=== PATIENT | female | born 1980 | race Caucasian/White ===

== ENCOUNTER 2018-05-07 11:29 | Day surgery (SDC) | payer BC, SELFPAY ==
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
[2018-05-07 11:52] LABS: Internal QC Validated? YES +Cl - CLEAR BKGD; Pregnancy, Urine Negative Negative
[2018-05-07 11:53] VITALS: BP 128/75; PULSE 74; RESP 18; TEMP 37.2; O2SAT 100; BMI 42.9
[2018-05-07 12:12] LABS: Hematocrit 42.2 % (37-47); Hemoglobin 13.6 g/dl (12.0-15.0); Mean Corp Hgb Conc 32.2 g/gl (32-36); Mean Corpuscular Hgb 30.2 pg (27.0-32.0); Mean Corpuscular Volume 93.8 fL (81-99); Mean Platelet Vol. 10.3 fl (6.2-12.0); Platelet Count 250 K/mm3 (150-450); RBC Distribution Width CV 13.3 % (11.6-14.6); RBC Distribution Width SD 45.1 fl (35.1-43.9); Scan Indicated on CBC? Y/N NO; White Blood Count 12.6 K/mm3 (4.4-11.0)
[2018-05-07] MEDS: Ketorolac 30 MG/ML Syringe IV (12:12)
[2018-05-07] MEDS: Acetaminophen 500 MG Tablet 1000 MG PO (12:12)
[2018-05-07] MEDS: Vasopressin 20 UNITS/ML Vial (13:48)
--- NOTE | 2018-05-07 14:17 | DCINST_ITS ---
Discharge Diet: No Restrictions Discharge Activity: Return to Normal Activity, May Shower, May Take a Tub Bath - in 2 weeks. May shower in (days): 1 May resume sexual activity in: 2 weeks Call your doctor if your incision/area has: Sudden Increased Bleeding, Foul Smelling Discharge Call your doctor if you observe: Fever of 101 or Higher, Inability to urinate, Using more than one pad per hour - for more than 2 hrs in a row Allergies/Adverse Reactions: Allergies adhesive tape Allergy (Verified 05/07/18 11:50) Rash cephalexin monohydrate [From Keflex] Allergy (Verified 05/07/18 11:50) Hives levofloxacin [From Levaquin] Allergy (Verified 05/07/18 11:50) Hives Penicillins [PCN] Allergy (Verified 05/07/18 11:50) Anaphylaxis vancomycin Allergy (Verified 05/07/18 11:50) Unknown Medications to take at Discharge Clobazam [Onfi] 10 mg PO QHS 12/29/12 Levalbuterol HCl [Xopenex Aerosols] 0.63 mg INHALATION Q4H PRN PRN 12/29/12 Levalbuterol Tartrate [Xopenex Hfa Inhaler] 2 puff INHALATION Q4H PRN PRN 12/29/12 Levothyroxine [Synthroid] 200 mcg PO MOTUWETHFRSA 12/29/12 Zonisamide [Zonegran] 200 mg PO BID 12/29/12 Valium 10 mg IM BID PRN PRN 03/05/13 Citalopram [Celexa] 20 mg PO DAILY 05/01/18 Lamotrigine [Lamictal] 100 mg PO DAILY 05/01/18 Lamotrigine [Lamictal] 200 mg PO QHS 05/01/18 MethylPREDNISolone [Medrol] 16 mg PO DAILY PRN 05/01/18 Hydrocodone/Acetaminophen [[place] 5-325 Tablet] 1 - 2 each PO Q8 PRN #8 tablet 05/07/18 Ibuprofen [Motrin] 600 mg PO Q6H PRN #20 tablet 05/07/18 The following prescriptions were given: Hydrocodone/Acetaminophen [[place] 5-325 Tablet] 1 - 2 each PO Q8 PRN #8 tablet PRN Reason: Severe Pain (-12/10) Ibuprofen [Motrin] 600 mg PO Q6H PRN #20 tablet PRN Reason: Pain Primary Care Physician: [facility] Doctor,Out of [Primary Care Provider] - Test Results: Test results from this visit will be discussed in further detail at your follow- up appointment, if applicable. Please Follow Up With: Marissa Melo MD - [phone] When: 2-4 weeks or as needed
--- NOTE | 2018-05-07 14:41 | PCM.OPRPT ---
Report of Operation Date of Procedure: 05/07/18 Pre-Operative Diagnosis: AUB, thickened endometrium Post-Operative Diagnosis: same Surgery/Procedure Performed:: Hysteroscopy with dilation and curettage with symphion device Description of Surgical Findings:: Normal-appearing cervix and vagina. Endometrium with polypoid appearing lesion in the anterior fundus. Otherwise diffusely thickened endometrium window treatment installer: Anup Davalos MS3 Type of Anesthesia:: General Anesthesiologist: Francisca Mayer Special Medications: vasopression injection in the cervix Specimen's removed: endometrial curettings Drains: none Estimated Blood Loss (mL): 10 Fluids Replaced: 400 cc LR Description of Procedure: The patient was taken to the OR where she was prepped and draped in dorsal lithotomy position. The weighted speculum was placed in the vagina and the anterior lip of the cervix was grasped with a single-tooth tenaculum. 10 cc of dilute vasopressin solution were injected around the cervix. After 2-3 minutes, the cervix dilated easily with the cervical dilators.. The Symphion hysteroscope was placed into the uterine cavity and the above findings were noted. Bilateral tubal ostia [were] identified. The symphion resection device was readied. I then used that to resect the polypoid appearing lesion as well as do a visual dilation and curettage of the entire endometrial cavity. At the end of this resection, the endometrial cavity appeared normal in shape and size and there were no other focal abnormalities noted. The instruments were removed from the vagina. The specimen was handed off and sent to pathology. All sponge and needle counts were correct. Vaginal sweep was performed by me. The patient was awakened and taken to the recovery room in stable condition. Hysteroscopic deficit was 150 cc normal saline Grafts/Implants Used: none - Complications none - Admit VTE Documentation VTE Present on Admission: No VTE Mechan Device Prophylaxis: SCD's VTE Pharm Prophylaxis ordered?: No Reason prophylaxis not ordered:: Procedure Not Indicated
[2018-05-07 14:45] VITALS: BP 124/76; BP 128/75; PULSE 75; RESP 16; TEMP 36.5; O2SAT 99
[2018-05-07 15:00] VITALS: BP 120/81; BP 128/75; PULSE 75; RESP 16; O2SAT 99
[2018-05-07 15:17] VITALS: BP 125/84; BP 128/75; PULSE 85; RESP 16; TEMP 36.6; O2SAT 99
[2018-05-07] MEDS: HYDROcodone Bitartrate/Apap 5/325 Tablet PO (15:49)
[2018-05-07 16:08] VITALS: BP 122/85; BP 128/75; PULSE 78; RESP 16; O2SAT 98
--- NOTE | 2018-05-08 13:10 | EMB_PTH ---
PATIENT: NAVIN LEVY LOC: [facility] [place] U#:[id number] AGE/SX: 37/F ROOM: RE05/07/[address]: Dr. Marissa Melo MD : 1980 BED: DIS: 05/07/2018 SPEC #: [id number] RECD: 05/08/18 13:38 STATUS: DUTCH DANELLE #: [id number] DAYANA: 05/08/18 13:[address]: Marissa Melo DEPT: SURGICAL PATHOLOGY RECD BY: Ludy John ENTERED: 05/08/18 14:28 SP TYPE: ENDOM BX/C OT DR: [facility] Doctor Tissues: Endometrium, NOS Procedures: Surgery Specimen Level IV HEADER OPERATION: Hysteroscopy, D & C, polyp resection, Symphion PRE-OP DIAGNOSIS: Menorrhagia, thickened endometrium, suspected endometrial polyp TISSUE SUBMITTED: Endometrial curettings MICROSCOPIC DIAGNOSIS Endometrium, curettings: Secretory endometrium. AM:guillaume 05/11/18 MICROSCOPIC DESCRIPTION Slides are reviewed. GROSS DESCRIPTION Received in fixative is one container labeled with the patient's name and designated endometrial curettings. The specimen consists of multiple irregular fragments of light lundberg soft tissue that in aggregate measure 7 x 5 x 0.2 cm. The specimen is totally submitted in two cassettes. / AM:guillaume 05/08/09 TC:5 CPT: 62492
== END 2018-05-07 16:10 | disposition home or self-care (01) ==
LOC: SDC 11:31 → AC 11:32
PROVIDERS: Referring Provider Obstetrics & Gynecology; Visit Provider Obstetrics & Gynecology
PROC: 0UB98ZZ Excision of Uterus, Via Natural or Artificial Opening Endoscopic (ICD-10-PCS; CPT 58558; principal; 2018-05-07 12:55)
DX: N92.0 Excessive and frequent menstruation with regular cycle (principal); R93.89 Abnormal findings on diagnostic imaging of other specified body structures; J45.909 Unspecified asthma, uncomplicated; M79.7 Fibromyalgia; C73 Malignant neoplasm of thyroid gland; Z79.899 Other long term (current) drug therapy; Q04.9 Congenital malformation of brain, unspecified; Q76.49 Other congenital malformations of spine, not associated with scoliosis; F32.9 Major depressive disorder, single episode, unspecified; F41.9 Anxiety disorder, unspecified; K58.9 Irritable bowel syndrome, unspecified; M06.9 Rheumatoid arthritis, unspecified
CPT/HCPCS: 00952; 58558; 81025; 85027; 88305; J7120; J2405

== ENCOUNTER 2018-06-09 19:05 | Emergency (ER) | payer BC, SELFPAY ==
[2018-06-09 19:05] VITALS: BP 165/82; PULSE 85; RESP 16; TEMP 36.6; O2SAT 98; BMI 44.3
--- NOTE | 2018-06-09 19:28 | RAD_ITS ---
STUDY: X-RAY CHEST REASON FOR EXAM: Female, 37 years old. Coughing up blood TECHNIQUE: PA and lateral chest COMPARISON: None. FINDINGS: The lungs are clear and expanded. There is no demonstrated pleural abnormality. Normal size heart. Normal mediastinum and diogo. Normal visualized pulmonary arteries. Normal visualized aortic arch and descending thoracic aorta. There is mild thoracic kyphosis with osteophyte formation. Normal visualized ribs, clavicles, and shoulders. There is no demonstrated abnormality of the visualized soft tissue structures of the upper abdomen. RAD/Chest PA and Lateral IMPRESSION: Normal x-ray examination of the chest. Electronically Signed: Uri Savage, at 21:18 EDT Tel , Service support ,
--- NOTE | 2018-06-09 19:28 | ED.VISSUMM ---
- ER Visit Summary Date of Service: 06/09/18 Chief Complaint: Cough and today coughed up blood History of Present Illness: The patient is a 37 F history of seizure disorder, asthma, hypothyroidism and anxiety. He states she is chronic cough nonproductive for the last 3 weeks. Today he coughed several times and coughed up blood. She denies any chest pain, fever or shortness of breath. She is never had a DVT or PE. No clotting disorder. No family history. She has had no recent hospitalization. She did have a D&C done 6 weeks ago. She denies any calf pain. She was seen today in urgent care who sent her to the ER for further evaluation. Physical Examination: Middle-aged woman no acute distress. Vital signs are stable afebrile. Pulse ox 98% on room air no signs of hypoxia. HEENT exam unremarkable. Neck nontender no JVD. Lungs clear to auscultation bilaterally. Heart regular rate and rhythm no murmur. Rate about 80. Abdomen soft and nontender. Moving all 4 extremities. Calves are nontender without edema or cords. Neurologically she is awake and alert with no focal motor deficits. Test Results: D-dimer equals 0.51 barely above normal. Chest x-ray 2 views AP and lateral shows no acute abnormality. Read both by myself and the radiologist. Emergency Department Course and Treatment: Multiple repeat exams the patient is doing well at 2210. Due to the elevated d-dimer we are attempting to get a CTA. Unfortunately the patient's left upper extremity antecubital large-bore IV blew. Nurses are attempting to put a second IV and to get the CTA. I examined the patient's neck there is no visualized EJ Vein that would be easily accessible. Treatment Plan: [] Disposition: Discharge Impression: Cough with hemoptysis This note was generated with [employer] dictation software. It may contain incorrect words, spelling, and punctuation that were not noted in review of the chart prior to signing ED Disposition - Plan for ED Patient: Referrals: [facility] Doctor,Out of [Primary Care Provider] -
--- NOTE | 2018-06-09 19:31 | ED.DCSUM_ITS ---
- ER Visit Summary Date of Service: 06/09/18 Chief Complaint: Cough and today coughed up blood History of Present Illness: The patient is a 37 F history of seizure disorder, asthma, hypothyroidism and anxiety. He states she is chronic cough nonproductive for the last 3 weeks. Today he coughed several times and coughed up blood. She denies any chest pain, fever or shortness of breath. She is never had a DVT or PE. No clotting disorder. No family history. She has had no recent hospitalization. She did have a D&C done 6 weeks ago. She denies any calf pain. She was seen today in urgent care who sent her to the ER for further evaluation. Physical Examination: Middle-aged woman no acute distress. Vital signs are stable afebrile. Pulse ox 98% on room air no signs of hypoxia. HEENT exam unremarkable. Neck nontender no JVD. Lungs clear to auscultation bilaterally. Heart regular rate and rhythm no murmur. Rate about 80. Abdomen soft and nontender. Moving all 4 extremities. Calves are nontender without edema or cords. Neurologically she is awake and alert with no focal motor deficits. Test Results: D-dimer equals 0.51 barely above normal. Chest x-ray 2 views AP and lateral shows no acute abnormality. Read both by myself and the radiologist. Emergency Department Course and Treatment: Multiple repeat exams the patient is doing well at 2210. Due to the elevated d-dimer we are attempting to get a CTA. Unfortunately the patient's left upper extremity antecubital large-bore IV blew. Nurses are attempting to put a second IV and to get the CTA. I examined the patient's neck there is no visualized EJ Vein that would be easily accessible. Treatment Plan: [] Disposition: Discharge Impression: Cough with hemoptysis This note was generated with [employer] dictation software. It may contain incorrect words, spelling, and punctuation that were not noted in review of the chart prior to signing ED Disposition - Plan for ED Patient: Referrals: [facility] Doctor,Out of [Primary Care Provider] -
[2018-06-09 20:19] LABS: D-Dimer Quantitative (DVT/PE) 0.51 FEU/ug/m (0.27-0.49)
--- NOTE | 2018-06-09 20:39 | CT_ITS ---
STUDY: CTA CHEST REASON FOR EXAM: Female, 37 years old. Hemoptysis tonight with elevated d-dimer level and cough for 2 weeks. RADIATION DOSAGE (If Supplied By Facility): CTDIvol = ( 1.67 ) mGy, DLP = ( 527.59 ) mGycm TECHNIQUE: The examination was performed with the intravenous administration of 100 ml IV Isovue 370. Post-processing of the angiographic images was performed, with multiplanar reformation and 3D reconstruction. Individualized dose optimization techniques were used for this CT. COMPARISON: CT of the chest dated January 07, 2012. FINDINGS: Normal enhancement of the main pulmonary artery and right and left pulmonary arteries. Normal enhancement of the bilateral peripheral pulmonary arteries. There is no demonstrated pulmonary embolism. Normal thoracic aorta and visualized great vessels. There is no demonstrated aortic dissection. Normal heart and pericardium. Normal mediastinum. Normal hilar regions. Normal visualized trachea and bronchi. The lungs are well expanded. Normal pulmonary parenchyma. Normal pleura. Normal chest wall structures. Normal osseous structures. Normal visualized upper abdomen. CT/CTA Chest W/WO Contrast IMPRESSION: No CTA demonstrated pulmonary embolism or arterial dissection. Electronically Signed: Elizabeth Trevino MD at 0:34 EDT , Service support ,
[2018-06-09 20:51] LABS: Hematocrit 43.3 % (37-47); Hemoglobin 14.5 g/dl (12.0-15.0); Mean Corp Hgb Conc 33.5 g/gl (32-36); Mean Corpuscular Hgb 30.5 pg (27.0-32.0); Mean Corpuscular Volume 91.2 fL (81-99); Mean Platelet Vol. 10.4 fl (6.2-12.0); Platelet Count 279 K/mm3 (150-450); RBC Distribution Width CV 13.5 % (11.6-14.6); RBC Distribution Width SD 44.3 fl (35.1-43.9); Red Blood Count 4.75 M/mm3 (4.2-5.4); Scan Indicated on CBC? Y/N NO; White Blood Count 13.3 K/mm3 (4.4-11.0)
[2018-06-09 21:05] VITALS: RESP 16
[2018-06-09 21:11] LABS: BUN 8 mg/dL (7-18); Creatinine, Serum 0.93 mg/dL (0.55-1.02); Estimated Creatinine Clearance 84.88 ml/min; Glucose 86 mg/dL (74-106)
[2018-06-09 21:12] LABS: Anion Gap 5 (5-15); BUN/Creat Ratio 8.6 RATIO (10-20); Calcium,Total 8.8 mg/dL (8.5-10.1); Chloride 108 mmol/L (98-107); EST Glomerular Filtration Rate 71 mL/min (>60); Est Glom Filt Rate - Afr Amer 86 mL/min (>60); Sodium Level 137 mmol/L (136-145)
[2018-06-09] MEDS: 0.9% Normal Saline 1,000 ML 999 ML IV (22:27)
[2018-06-10 00:41] VITALS: BP 131/86; PULSE 77; RESP 16; O2SAT 97
--- NOTE | 2018-06-10 00:49 | ED.DEP ---
ED Disposition - Plan for ED Patient: Instructions: ED Hemoptysis Referrals: [facility] Doctor,Out of [Primary Care Provider] -
--- NOTE | 2018-06-10 01:05 | ED.RN ---
THIS NURSE REVIEWED D/C INSTRUCTIONS WITH PT. PT VERBALIZED UNDERSTANDING OF INSTRUCTIONS. IV D/C. IV CATHETER INTACT. PT TOLERATED WELL. PT DENIES FURTHER NEEDS OR QUESTIONS AT THIS TIME
== END 2018-06-10 01:06 | disposition home or self-care (01) ==
LOC: ED 19:32
PROVIDERS: Emergency Provider Emergency Medicine
DX: R04.2 Hemoptysis (principal); G40.909 Epilepsy, unspecified, not intractable, without status epilepticus; J45.909 Unspecified asthma, uncomplicated; E03.9 Hypothyroidism, unspecified; F41.9 Anxiety disorder, unspecified; Z79.51 Long term (current) use of inhaled steroids; Z79.899 Other long term (current) drug therapy
CPT/HCPCS: 71046; 71275; 80048; 85027; 85379; 96360; 99285; J7030; Q9967; A4216

== ENCOUNTER → 2019-03-23 10:05 | Outpatient (CLI) | payer BC, SELFPAY ==
[2019-03-23 10:00] VITALS: BMI 44.3
--- NOTE | 2019-03-23 10:06 | RAD_ITS ---
HISTORY: DISLOCATION LAST EVENING ADDITIONAL HISTORY: None provided. TECHNIQUE: Right shoulder 3 views Number of images including paperwork: 4 COMPARISON: None FINDINGS: BONES: No acute fracture. JOINTS: No subluxation. Degenerative changes in the visualized spine. SOFT TISSUES: No distinct foreign body. RAD/Shoulder min 2 Views IMPRESSION: No acute osseous abnormality. at 0615 Reported and signed by: Destini Low MD Electronically Signed: Destini Low MD at 6:15 EST Tel , Service support ,
== END ==
PROVIDERS: Referring Provider Physician Assistant Surgical; Visit Provider Physician Assistant Surgical
DX: S46.911A Strain of unspecified muscle, fascia and tendon at shoulder and upper arm level, right arm, initial encounter (principal); X58.XXXA Exposure to other specified factors, initial encounter; Y93.9 Activity, unspecified; Y92.9 Unspecified place or not applicable; Y99.9 Unspecified external cause status
CPT/HCPCS: 73030

== ENCOUNTER → 2019-03-30 12:49 | Outpatient (CLI) | payer BC, SELFPAY ==
[2019-03-30 12:33] VITALS: BMI 44.3
--- NOTE | 2019-03-30 12:49 | RAD_ITS ---
STUDY: X-RAY - RIGHT SHOULDER REASON FOR EXAM: History of dislocation. TECHNIQUE: A single view of the shoulder. COMPARISON: Radiographs 03/23/2019. FINDINGS: Normal glenohumeral articulation. Normal acromion. Normal humeral head and visualized proximal humerus. The soft tissue structures are unremarkable. RAD/Shoulder One View IMPRESSION: Unremarkable axillary view of the right shoulder. Electronically Signed: Dylan Marion MD at 15:35 EST Tel , Service support ,
--- NOTE | 2019-03-30 12:49 | RAD_ITS ---
STUDY: X-RAY - CERVICAL SPINE REASON FOR EXAM: Female, 38 years old. History of congenital cervical spine fusion. Pain. TECHNIQUE: 5 view(s) of the cervical spine were obtained on 6 images. COMPARISON: None FINDINGS: Normal anterior atlantoaxial articulation. Normal odontoid process. Normal cervical lordosis. Congenital fusion of C3-4. Normal disc space heights. Normal visualized intervertebral neuroforamina. Mild diffuse uncovertebral and facet sclerosis. Clips in the region of the thyroid. RAD/Cerv Spine 4 or 5 Views IMPRESSION: Congenital fusion of C3-4. Mild diffuse cervical spondylosis. Electronically Signed: Sebastian Camilo MD at 18:35 EST , Service support ,
== END ==
PROVIDERS: Referring Provider Orthopaedic Surgery; Visit Provider Orthopaedic Surgery
DX: M25.511 Pain in right shoulder (principal); M54.2 Cervicalgia
CPT/HCPCS: 72050; 73020

== ENCOUNTER 2019-04-05 11:53 | Outpatient (RCR) | payer BC, SELFPAY ==
[2019-03-30 12:33] VITALS: BMI 44.3
--- NOTE | 2019-04-05 12:51 | HP.PTEVAL ---
Patient's Visit Information NAVIN LEVY is a 38 year old F referred to Physical Therapy by Dr. Margie Buck DO with a diagnosis of RIGHT SHOULDER IMPINGEMENT/RTC TENDONESIS. Date of Evaluation: 04/05/19 Physical Therapist: Royal Gee, PT, Cert MDT, OCS - Visit Plan Frequency: 1 VISIT Plan: H/O SEIZURES. PT EVAL ONLY FOR HEP - Subjective Findings: This 38 y/o female presents to physical therapy with right shoulder impingement /RTC tendonesis. Patient has h/o multiple MDI ( multiple directional instablity) . Patient has h/o seizures causing disloaction,typically posterior dislocation. Patient recently reaching foward caused shoulder pain.Patient pain could have been due to lifting 50# boxes. Patient seen DR Fitzpatrick did x-rays -.,did cortizone injection which helped pain. Patient had difficulty with [place] activies ,reaching affects ADLS' . Patient pain affects ADL's and function with job demands. Patient denies parathesia/tinging . Patient pain affects sleeping. Patient shoulder symptoms affects QOL ,function and job demnads. SOCAIL: . VOCATION: Warehouse Delivery Driver - Objective POSTURE: rounded shoulders head foward. PALAPTION:unremarkable. NEURO: INTACT. AROM: shoulder flexion/abd 180 ,ER > 90 degrres,IR T8. MMT: RTC 4/5 except infraspinatous 4-/5 ,deltoid 4-/5. ,scapular 3/5. SCAPULAR -HUMERAL:1:1 RATIO - Special Tests R Shoulder Drop Sign - IS Test: Negative R Shoulder Neer - Impingement: Negative R Shoulder Clemons Ernesto - Impingement: Negative R Shoulder Speeds Test - Labrum/Biceps: Negative R Shoulder Sulcus Sign - Inferior Laxity: Positive R Shoulder AC Resisted - AC: Negative - Goals Goal 1:: Provided HEP for RTC strengthening/posture Goal Time Frame: 1 visit - Rehabilitation Potential Physical Therapy Diagnosis: This pateint has h/o multiple directional instablity with pain in right shoulder but no pain today ,just weakness and wanted HEP. Rehabilitation Potential: Good - Anticipated Interventions Patient/Client Instruction: Educate patient on: Condition, Plan of Care For the Purpose of:: Other Other: HEP Thank you for the opportunity to evaluate your patient. For Medicare and Medicare HMO plans, please review the plan of care and approve it. It will need to be FAXED BACK to us at [phone] for Medicare purposes. For Medicare only, by signing this I certify the plan of care. Please let me know if there are questions or concerns regarding this plan of care. Physician Signature: Date:
== END 2019-04-05 19:00 | disposition home or self-care (01) ==
LOC: PT 11:53
PROVIDERS: Referring Provider Orthopaedic Surgery; Visit Provider Orthopaedic Surgery
DX: M25.811 Other specified joint disorders, right shoulder (principal); M75.21 Bicipital tendinitis, right shoulder; M25.312 Other instability, left shoulder; M25.311 Other instability, right shoulder; Z86.69 Personal history of other diseases of the nervous system and sense organs; M24.811 Other specific joint derangements of right shoulder, not elsewhere classified
CPT/HCPCS: 97110; 97161

== ENCOUNTER → 2020-01-11 16:08 | Outpatient (CLI) | payer BC, SELFPAY ==
[2019-10-06 17:19] VITALS: BMI 44.3
--- NOTE | 2020-01-11 16:20 | RAD_ITS ---
STUDY: X-RAY CHEST REASON FOR EXAM: Female, 39 years old. cough, dyspnea and fever x 3 days TECHNIQUE: PA and lateral views of the chest. COMPARISON: 06/09/2018 FINDINGS: Faint alveolar opacity in the lower left lung which silhouettes left heart border suggestive of early or resolving lingular pneumonia. There is no demonstrated pleural abnormality. Normal size heart. Normal mediastinum and diogo. Normal visualized pulmonary arteries. Normal visualized aortic arch and descending thoracic aorta. Normal visualized thoracic spine. Normal visualized ribs, clavicles, and shoulders. There is no demonstrated abnormality of the visualized soft tissue structures of the upper abdomen. RAD/Chest PA and Lateral IMPRESSION: Early or resolving lingular pneumonia. Electronically Signed: Bennie Green MD at 16:46 EST Tel , Service support ,
== END ==
PROVIDERS: Referring Provider Internal Medicine Pulmonary Disease; Visit Provider Internal Medicine Pulmonary Disease
DX: J18.9 Pneumonia, unspecified organism (principal)
CPT/HCPCS: 71046

== ENCOUNTER → 2020-01-12 09:46 | Outpatient (CLI) | payer BC, SELFPAY ==
[2019-10-06 17:19] VITALS: BMI 44.3
== END ==
PROVIDERS: Visit Provider Internal Medicine Pulmonary Disease
DX: R50.9 Fever, unspecified (principal); R05 Cough; R06.02 Shortness of breath
CPT/HCPCS: 87635; C9803; U0003

== ENCOUNTER 2020-01-15 11:50 | Emergency (ER) | payer BC, SELFPAY ==
[2019-10-06 17:19] VITALS: BMI 44.3
[2020-01-15 11:51] VITALS: BP 150/106; PULSE 120; RESP 20; TEMP 36.9; O2SAT 95; BMI 44.3
--- NOTE | 2020-01-15 12:06 | ED.VIS.GEN ---
History of Present Illness Informant: Patient Onset: Days Narrative: 39-year-old female with past medical history of asthma presents with fever, productive cough, and myalgias x6 days. She had an outpatient chest x-ray and Covid test on 01/10 which showed early pneumonia and COVID test was negative. Her PCP prescribed her doxycycline and steroids which has reduced her wheezing and improved her breathing. She denies shortness of breath. Her main complaint is the myalgias and nausea. She states she has some chronic abdominal cramping and diarrhea which is unchanged. <Lorrie Garcia - Last Filed: 01/15/20 13:25> <Edmond Anderson - Last Filed: 01/15/20 14:41> Chief Complaint: Shortness of Breath Past Medical History Past Medical History: - - asthma Surgical History: cholecystectomy, - - thyroid resection for CA.....got I131 x 2 doses for mets on voal cords. Also had a D&C and a C-sect., Recent laparoscopic OBGYN surgery type unknown Smoking Status: Never smoker <Lorrie Garcia - Last Filed: 01/15/20 13:25> <Edmond Anderson - Last Filed: 01/15/20 14:41> - Allergies and Home Meds Allergies/Adverse Reactions: Allergies adhesive tape Allergy (Verified 01/15/20 11:51) Rash cephalexin monohydrate [From Keflex] Allergy (Verified 01/15/20 11:51) Hives levofloxacin [From Levaquin] Allergy (Verified 01/15/20 11:51) Hives Penicillins [PCN] Allergy (Verified 01/15/20 11:51) Anaphylaxis vancomycin Allergy (Verified 01/15/20 11:51) Unknown Primary Care Physician: NOT,DEFINED [NON-STAFF] - Review of Systems General: Reports: Chills, Fever, Malaise. Denies: Sweats, Weight loss Eyes: Denies: Visual changes - bilaterally, Diplopia ENT: Denies: Rhinorrhea, Sore throat Cardiovascular: Denies: Chest pain, Palpitations Respiratory: Reports: Cough, Sputum. Denies: Dyspnea, Dyspnea on exertion, Orthopnea Gastrointestinal: Reports: Abdominal pain, Nausea, Diarrhea. Denies: Vomiting Genitourinary: Denies: Dysuria, Hematuria, Frequency Musculoskeletal: Reports: Myalgias Skin: Denies: Rash, Wounds Neurological: Denies: Headache, Weakness, Numbness <Lorrie Garcia - Last Filed: 01/15/20 13:25> Physical Exam Vital Signs/Narrative: Vital Signs Temp Pulse Resp BP Pulse Ox 01/15/20 11:51 98.4 F 120 H 20 H 150/106 H 95 Inital Vital Signs reviewed: Yes General: Well nourished, Well developed, No Acute Distress Head: Normocephalic, Atraumatic Eyes: Perrl, EOMI ENT: Moist mucous membranes, No rhinorrhea Neck: Supple, Nontender Cardiovascular: Regular rate, Regular rhythm, No murmurs Respiratory: No distress, Chest nontender, - - mild expiratory wheezing in lung bases Abdomen: Soft, Nontender, Nondistended, Normal bowel sounds Back: Nontender, Normal Inspection Extremities: Nontender, No edema Skin: Normal color, No rash Neurological: Alert, Oriented x3, Cranial nerves II-XII grossly intact, Normal Strength, Normal Sensation Psychological: Normal affect, Normal Mood <Lorrie Garcia - Last Filed: 01/15/20 13:25> Vital Signs/Narrative: Vital Signs Temp Pulse Resp BP Pulse Ox 01/15/20 13:10 100 20 H 146/93 H 01/15/20 11:51 98.4 F 120 H 20 H 150/106 H 95 <Edmond Anderson - Last Filed: 01/15/20 14:41> Diagnostic/Tx/Re-eval Clinical Impression(s) from Imaging Studies Chest X-Ray 01/15/20 12:11 IMPRESSION: Left upper lobe pneumonia. Electronically Signed: Bennie Green MD at 12:30 EST Tel , Service support , - Medical Decision Making Patient presented with fever, productive cough, myalgias, and nausea. She appears well and nontoxic. Vital signs show tachycardia of 120, otherwise normal. 95% on room air. She is in no respiratory distress. Lungs had mild expiratory wheezing. Chest x-ray was interpreted by attending physician and myself and shows left upper lobe infiltrate. Radiology agrees. Another outpatient COVID test is pending. She was treated with toradol and zofran and vitals improved. She was advised to continue doxycycline and I gave a script for Augmentin. She needs to continue hydration and tylenol. She has a pulse oximeter and will return for hypoxia. She was agreeable and discharged home in stable condition. <Lorrie Garcia - Last Filed: 01/15/20 13:25> - Medical Decision Making Patient was seen by me, she appears well she was slightly tachycardic and has pneumonia on the x-ray we will treat her with antibiotics although I'm also worried about Covid. This is pending. She was told to quarantine. She is told to get a pulse oximeter. If she worsens she needs to return and she understands this if she desaturates below 88% she is to return and she understands this. <Edmond Anderson - Last Filed: 01/15/20 14:41> ED Disposition <Lorrie Garcia - Last Filed: 01/15/20 13:25> <Edmond Anderson - Last Filed: 01/15/20 14:41> - Plan for ED Patient: Disposition: Home or Assisted Living Diagnosis: Pneumonia Instructions: ED Upper Resp Infec Abx Tx Prescriptions: Amoxicillin/Potassium Clav [Augmentin 875-125 Tablet] 1 ea PO BID #14 tab Prescription Printed Ondansetron [Zofran Odt] 4 mg PO Q8H PRN PRN #10 tab PRN Reason: Nausea Prescription Printed Referrals: NOT,DEFINED [NON-STAFF] -
[2020-01-15] MEDS: Ketorolac 15 MG/ML Vial IM (12:11)
[2020-01-15] MEDS: Ondansetron ODT 4 MG Tablet PO (12:11)
--- NOTE | 2020-01-15 12:11 | RAD_ITS ---
STUDY: X-RAY CHEST REASON FOR EXAM: Female, 39 years old. Fever, thick cough TECHNIQUE: Single AP portable view of the chest. COMPARISON: 01/11/2020 FINDINGS: Alveolar opacity in the mid left lung consistent with left upper lobe pneumonia. There is no demonstrated pleural abnormality. Normal size heart. Normal mediastinum and diogo. Normal visualized pulmonary arteries. Normal visualized aortic arch and descending thoracic aorta. Normal visualized thoracic spine. Normal visualized ribs, clavicles, and shoulders. There is no demonstrated abnormality of the visualized soft tissue structures of the upper abdomen. RAD/Chest 1 View (Portable) IMPRESSION: Left upper lobe pneumonia. Electronically Signed: Bennie Green MD at 12:30 EST Tel , Service support ,
[2020-01-15] MEDS: Amox/Clavulanate 875 MG Tablet PO (13:06)
[2020-01-15 13:10] VITALS: BP 146/93; PULSE 100; RESP 20
== END 2020-01-15 13:11 | disposition home or self-care (01) ==
LOC: ED 12:54
PROVIDERS: Emergency Provider Physician Assistant
DX: U07.1 COVID-19 (principal); J12.89 Other viral pneumonia; J45.909 Unspecified asthma, uncomplicated; R11.0 Nausea; R19.7 Diarrhea, unspecified; Z79.899 Other long term (current) drug therapy
CPT/HCPCS: 71045; 87635; 96372; 99283; U0003

== ENCOUNTER → 2020-03-24 09:08 | Outpatient (CLI) | payer BC, SELFPAY ==
--- NOTE | 2020-03-24 09:15 | RAD_ITS ---
CLINICAL HISTORY: Female, 39 years old. Right shoulder dislocations. PROCEDURE: ARTHROGRAM - RIGHT SHOULDER CONSENT: The procedure as well as the benefits and possible complications including bleeding and infection were explained to the patient. Informed consent was obtained. FLUOROSCOPY TIME (if supplied): (46 seconds) minutes/seconds Injection Information: 10 cc of dilute Dotarem Number of images obtained: 4 TECHNIQUE: (All elements of maximal sterile barrier technique followed, including US elements as applicable) The patient was in the supine position. The overlying skin was prepped and draped in usual sterile fashion. Following local anesthetic application and under direct fluoroscopic guidance, a 22-gauge spinal needle was placed into the shoulder joint. 2 cc of ISOVUE-300 was injected for confirmation. Following this, 10 cc of dilute MRI contrast was injected. The patient tolerated the procedure well. RAD/Arthrogram Shoulder w/ MRI IMPRESSION: Successful right shoulder arthrogram with injection of 10 cc of dilute MRI contrast for MRI examination. The patient tolerated procedure well. Electronically Signed: Ke Butcher MD at 10:36 EST , Service support ,
--- NOTE | 2020-03-24 10:45 | MRI_ITS ---
STUDY: MR RIGHT SHOULDER ARTHROGRAPHY REASON FOR EXAM: Right shoulder pain and subluxations for several years. TECHNIQUE: Standardized fat and water weighted pulse sequences were obtained in all 3 orthogonal planes after attempted intra-articular instillation of 0.8 mL of dilute gadolinium by Dr. Butcher. COMPARISON: Right shoulder arthrogram radiographs preceding the MRI study. FINDINGS: Although there is image degradation secondary to patient motion and the contrast is extra-articular within the subacromial-subdeltoid bursa, there is still significant diagnostically useful information available from this examination. There is mild supraspinatus/infraspinatus tendinosis (T2 coronal images 10-12) without discrete tendon tear. Normal subscapularis tendon. Normal teres minor tendon. Normal supraspinatus muscle. Normal infraspinatus muscle. Normal subscapularis muscle. Normal teres minor muscle. Normal glenohumeral articulation. There is a small cyst in the posterior aspect of the greater tuberosity. There is no Hill-Sachs lesion. There is a subtle band of signal in the superior labrum extending into the biceps labral anchor (T2 coronal images 9-12), a possible SLAP lesion. Normal intracapsular long biceps tendon. There is no demonstrated Bankart lesion. Normal capsulo- ligamentous complex. Normal acromioclavicular articulation. There is a Type I morphology (flat undersurface), with a neutral orientation. There is iatrogenic contrast in the subacromial-subdeltoid bursa. Normal visualized coracohumeral and coracoacromial ligaments. There is iatrogenic edema in the proximal anterior deltoid muscle. Normal trapezius muscle. MRI/Upper Ext Jt Only W/Contrast IMPRESSION: Mild supraspinatus tendinosis without demonstrated rotator cuff tear. Possible subtle SLAP lesion. Electronically Signed: Dylan Marion MD at 12:47 EST Tel , Service support ,
== END ==
LOC: RAD 09:12
PROVIDERS: Referring Provider Orthopaedic Surgery; Visit Provider Orthopaedic Surgery
DX: M24.411 Recurrent dislocation, right shoulder (principal); M75.41 Impingement syndrome of right shoulder; S43.431A Superior glenoid labrum lesion of right shoulder, initial encounter; X58.XXXA Exposure to other specified factors, initial encounter; Y93.9 Activity, unspecified; Y92.9 Unspecified place or not applicable; Y99.9 Unspecified external cause status
CPT/HCPCS: 23350; 73222; 77002; Q9967; A9575

== ENCOUNTER → 2020-04-04 07:13 | Outpatient (CLI) | payer BC, SELFPAY ==
--- NOTE | 2020-04-04 07:14 | CT_ITS ---
STUDY: CT RIGHT SHOULDER REASON FOR EXAM: Right shoulder injury, right shoulder pain from dislocation. TECHNIQUE: The patient was scanned in a multi detector CT scanner. High resolution transaxial imaging was performed without the administration of intravenous contrast material. Sagittal and coronal images were reconstructed. Individualized dose optimization techniques were used for this CT. COMPARISON: MRI images 03/24/2020. FINDINGS: Normal glenohumeral articulation. Normal glenoid rim, neck and visualized scapula. Normal humeral head, neck and tuberosities. Normal coracoid process. Normal visualized lateral clavicle. Normal acromioclavicular articulation. There is a Type I morphology (flat undersurface), with a neutral orientation. Normal visualized muscles and soft tissue structures. CT/Extremity Upper without Contra IMPRESSION: Unremarkable CT of the right shoulder without demonstrated Hill-Sachs lesion or osseous Bankart lesion. Electronically Signed: Dylan Marion MD at 8:44 EST Tel , Service support ,
== END ==
LOC: CT 07:14
PROVIDERS: Referring Provider Orthopaedic Surgery; Visit Provider Orthopaedic Surgery
DX: M24.411 Recurrent dislocation, right shoulder (principal); M75.41 Impingement syndrome of right shoulder; S43.431A Superior glenoid labrum lesion of right shoulder, initial encounter; X58.XXXA Exposure to other specified factors, initial encounter; Y93.9 Activity, unspecified; Y92.9 Unspecified place or not applicable; Y99.9 Unspecified external cause status
CPT/HCPCS: 73200

== ENCOUNTER 2021-01-29 16:58 | Emergency (ER) | payer BC, SELFPAY ==
[2021-01-29 16:59] VITALS: BP 182/111; PULSE 95; RESP 16; TEMP 35.9; O2SAT 97; BMI 42.2
--- NOTE | 2021-01-29 18:44 | EDS_ITS ---
HPI HPI - GI History of Present Illness Chief Complaint: Abd Pain Informant: patient Abdominal Pain/Flank Pain Onset: Month(s) Context: Gradual Onset Timing: Intermittent Location: Epigastric Current Severity: Mild Maximum Severity: Mild Worsened by: Nothing Relieved by: Nothing Nausea/Vomiting/Emesis GI Symptom: Positive for Nausea; Negative for Vomiting Onset: Today Severity: Mild Diarrhea/Melena/Hematochezia GI Symptom: Negative for Diarrhea, Melena and Hematochezia Associated Symptoms Associated Symptoms: Negative for Dysuria, Frequency and Hematuria Narrative Narrative: 40-year-old female history hemorrhoids, seizure disorder, thyroid cancer with thyroidectomy, and cholecystectomy and also history of rheumatoid arthritis. States she has had abdominal pain with lots of gastroesophageal reflux for weeks. Is been worse the last 2 to 3 days. Has had intermittent loose stools. No melena. No dysuria. No fever. Mild weight loss. Worse if she is lying flat. States she has been treating it with Prevacid and Pepto-Bismol with some improvement. Prior similar symptoms: Yes Recent Illness/Hospitalization: No PFSH PFS Medical History (Updated 01/29/21 @ 22:[address] Shaun Diggs MD) Back pain History of hemorrhoids History of seizures History of thyroid cancer Loss of consciousness Neck pain Shoulder pain stereoelectroencephalography steroelectroencephalogy Home Medications levalbuterol HCl 0.63 mg INHALATION Q4H PRN PRN 12/29/12 [History Last Taken 03/04/13 21:00] citalopram 40 mg PO DAILY 05/01/18 [History Last Taken Unknown] lamotrigine 100 mg PO DAILY 05/01/18 [History Last Taken 05/07/18 05:30] lamotrigine 200 mg PO QHS 05/01/18 [History Last Taken Unknown] zonisamide 200 mg PO BID 06/09/18 [History Last Taken Unknown] albuterol sulfate 2.5 mg IH TID 01/15/20 [History Last Taken Unknown] diazepam 10 mg PO DAILY PRN 01/15/20 [History Last Taken Unknown] levothyroxine 200 mcg PO .COMPLEX 01/15/20 [History Last Taken Unknown] ondansetron 4 mg PO Q8H PRN PRN #10 tab 01/15/20 [Rx Last Taken Unknown] tramadol 50 mg tablet 50 mg PO Q6H PRN #12 tab 03/24/20 [Rx Last Taken Unknown] pantoprazole [Protonix] 40 mg PO DAILY #30 tab 01/29/21 [Rx Last Taken Unknown] Allergy/AdvReac Type Severity Reaction Status Date / Time adhesive tape Allergy Rash Verified 01/29/21 17:02 cephalexin monohydrate Allergy Hives Verified 01/29/21 17:02 [From Keflex] levofloxacin [From Levaquin] Allergy Hives Verified 01/29/21 17:02 Penicillins [PCN] Allergy Anaphylaxis Verified 01/29/21 17:02 vancomycin Allergy Unknown Verified 01/29/21 17:02 Surgical History H/O thyroidectomy History of delivery History of cholecystectomy Social History Smoking Status: Never smoker alcohol intake: current alcohol intake frequency: a few times a month ROS ROS ED ROS Narrative Abdominal pain. Nausea. Review of Systems ROS Unobtainable: Denies due to encephalopathy Constitutional Constitutional ED: Denies chills or fever(s) ENT ENT ED: Denies ear pain Cardiovascular Cardiovascular: Denies chest pain or palpitations Respiratory/Chest Respiratory/Chest: Denies cough or dyspnea Gastrointestinal Gastrointestinal: Reports abdominal pain, diarrhea and nausea; Denies constipation, melena or vomiting Genitourinary Genitourinary ED: Denies dysuria or hematuria Musculoskeletal Musculoskeletal: Denies myalgias Integumentary Denies rash Neurologic Neurologic: Denies headache(s) Psychiatric Psychiatric: Denies depression Endocrine Endocrinology: Denies polyuria Hematologic/Lymphatic Hematologic/Lymphatic: Denies easy bruising Allergic/Immunologic Allergic/Immunologic ED: Denies urticaria EXAM Physical Exam Narrative Exam Narrative: Middle-age female vital signs stable afebrile. Initial blood pressure elevated 182/111. No distress. HEENT exam unremarkable. Moist mucous membranes. Neck nontender no lymphadenopathy. Lungs clear to auscultation bilaterally. Heart regular rhythm rate about 95 no murmur. Abdomen soft nondistended normal bowel sounds no peritoneal signs. At this time no inguinal tenderness. No hernia or mass. She is obese. Both the right upper and right lower quadrants are unremarkable. No signs of obstruction. No pulsatile mass. Moving all 4 extremities. Nontender no edema. Back nontender. Neurologically she is awake and alert. Const Vital Signs: 01/29/21 16:59 Temperature 96.7 F L Temperature Source Temporal Pulse Rate 95 Respiratory Rate 16 Blood Pressure 182/111 H Blood Pressure Mean 134 Pulse Ox 97 Oxygen Delivery Method Room Air Positive well nourished, well developed and obese; Negative for cachectic, contractures or unkempt General Appearance ED: well developed and NAD; Negative for unkempt, cachectic, contractures or pallor Nutritional Appearance: obese; Negative for cachectic HEENT Reports moist mucous membranes normocephalic and atraumatic; Negative for trauma or tenderness Eyes PERRL and EOMs intact bilaterally Neck no lymphadenopathy, supple and no JVD General: Negative for tenderness Resp normal respiratory effort and clear to auscultation bilaterally Auscultation: Negative for rales, rhonchi or wheezes Cardio regular rate, regular rhythm, S1 normal heart sound, S2 normal heart sound and no murmurs GI non-tender, non-distended and no masses Inspection: Negative for abdominal distention Auscultation: normoactive bowel sounds; Negative for hyperactive bowel sounds or hypoactive bowel sounds Palpation: soft; Negative for tender, guarding, rigid or rebound tenderness present Back/Spine no CVA tenderness General Back: Negative for CVA tenderness Cervical Spine: Negative for cervical spine tenderness Thoracic Spine / Upper Back: Negative for thoracic spinal tenderness Extremity full ROM General Extremety ED: Negative for edema or tenderness General Extremity: Negative for edema Neuro moves all extremities Sensorium / Orientation: alert, oriented to person, oriented to place and oriented to time; Negative for orientation impaired, confused, lethargic or stuporous Motor Exam: strength 5/5 throughout Psych mental status grossly normal and thought process normal Appearance: Negative for unkempt Mood & Affect: Negative for depressed or tearful Skin no wounds General Skin Exam: Negative for jaundice or pallor Lesions: no lesions Rashes: no rashes MDM MDM MDM Narrative Medical decision making narrative: 40-year-old female with abdominal pain. Currently pain is resolved. Abdomen is benign. Screening labs to be obtained. She will be treated with Zofran for nausea. Repeat exam at 10:40 PM patient is abdomen is benign. She is having no pain. She and I discussed all of her test results. She explained to me at another facility she had a CAT scan within the last year and states it was negative. She will follow up with her primary care physician who is outside this area about an hour or so away. Or return if she is not feeling better. She will be started on Protonix. Lab Data Attestation: I reviewed the patient's lab results. Lab results narrative: CBC shows white count of 14.6. I reviewed multiple CBCs of this patient and her white count often between 14 and 20,000. Hemoglobin 14.9. Platelets 306. Anion gap is 9 normal BUN and creatinine. Normal liver enzymes. Lipase normal at 163. Urinalysis shows 5-10 white cells 5-10 epithelial cells 2+ bacteria. No nitrates is contaminated specimen. Labs: Laboratory Results - last 24 hr 01/29/21 01/29/21 01/29/21 19:15 19:15 19:15 WBC 14.6 H RBC 4.90 Hgb 14.9 Hct 44.7 MCV 91.2 MCH 30.4 MCHC 33.3 RDW Std Deviation 42.5 RDW Coeff of Brinda 12.9 Plt Count 306 MPV 10.4 Immature Gran % (Auto) 0.600 Neut % (Auto) 67.8 Lymph % (Auto) 26.4 [place] % (Auto) 4.2 Eos % (Auto) 0.5 Baso % (Auto) 0.5 Absolute Neuts (auto) 9.9 H Absolute Lymphs (auto) 3.86 Nucleated RBC % 0 Sodium 140 Potassium 3.7 Chloride 108 H Carbon Dioxide 23.0 Anion Gap 9 BUN 9 Creatinine 0.93 Estim Creat Clear Calc 82.35 Est GFR (MDRD) Af Amer 85 Est GFR (MDRD) Non-Af 70 BUN/Creatinine Ratio 9.7 L Glucose 98 Calcium 9.5 Total Bilirubin 0.40 AST 26 ALT 43 Alkaline Phosphatase 116 Total Protein 7.9 Albumin 3.8 Globulin 4.1 Albumin/Globulin Ratio 0.9 Lipase 163 Urine Color Yellow Urine Clarity Sl. Cloudy Urine pH 6.5 Ur Specific [place] 1.020 Urine Protein 15 H Urine Glucose (UA) Normal Urine Ketones Negative Urine Occult Blood Negative Urine Nitrite Negative Urine Bilirubin Negative Urine Urobilinogen Normal Ur Leukocyte Esterase 100 H Urine RBC 0 SEEN Urine WBC 5-10 SEEN Ur Squamous Epith Cells 5-10 SEEN Urine Bacteria 2+ Urine Mucus 0 SEEN Urine Yeast 1+ Urine Test Negative Discharge Plan Triage Chief Complaint: Abd Pain ED Provider: Shaun Diggs Dx/Rx/DC Orders Clinical Impression: Abdominal pain, Rheumatoid arthritis Instructions: ED Abdominal Pain Unkn Cause Fem Prescriptions: New pantoprazole [Protonix] 40 mg tablet,delayed release (DR/EC) 40 mg PO DAILY Qty: 30 RF: 0 No Action levalbuterol HCl 0.63 MG/3 ML solution for nebulization 0.63 mg INHALATION Q4H PRN PRN (Reason: Asthma) RF: 0 lamotrigine 200 MG tablet 200 mg PO QHS RF: 0 citalopram 20 MG tablet 40 mg PO DAILY RF: 0 lamotrigine 100 MG tablet 100 mg PO DAILY RF: 0 zonisamide 100 MG capsule 200 mg PO BID RF: 0 albuterol sulfate 2.5 MG/3 ML solution for nebulization 2.5 mg IH TID RF: 0 levothyroxine 200 MCG tablet 200 mcg PO .COMPLEX RF: 0 diazepam 10 MG tablet 10 mg PO DAILY PRN (Reason: Anxiety) RF: 0 ondansetron 4 MG tablet 4 mg PO Q8H PRN PRN (Reason: Nausea) Qty: 10 RF: 0 tramadol 50 mg tablet 50 mg PO Q6H PRN (Reason: pain) Qty: 12 RF: 0 Primary Care Provider: Tiffany Zazueta,Out of Referrals: Tiffany Zazueta,Out of [Primary Care Provider] - 1 Week if not improving Activity Restrictions/Additional Instructions: Abdominal pain of uncertain cause. This may be secondary to irritation of her stomach called gastritis. We will start her on Protonix once a day. Follow-up with your primary care physician. If not improving we may need further studies or have you see a porcelain finish sprayer or do additional imaging. Return emergency department if increasing pain, fever, vomiting or black stool. Disposition Disposition: Home, Self Care
[2021-01-29 19:30] LABS: Mucous, Urine 0 SEEN /hpf (<or=2+); Red Blood Cells-Urine 0 SEEN /hpf (0-5)
[2021-01-29 19:31] LABS: Color, Urine Yellow (Yellow); Glucose, Dipstick Normal (Normal); Ketone-Dipstick Negative (Negative); Leukocyte Esterase-Dipstick 100 /ul (Negative); Nitrite-Dipstick Negative (Negative); Occult Blood-Urine Negative /ul (Negative); Protein-Dipstick 15 mg/dl (Negative); Urine Bilirubin Dipstick Negative (Negative); Urine Clarity Sl. Cloudy (Clear); Urine Urobilinogen Normal (Normal); Urine pH 6.5 (5.0 - 8.0)
[2021-01-29 19:32] LABS: Absolute Lymphocyte Count 3.86 X10^3/uL (0.83-4.51); Absolute Neutrophil Count 9.9 X10^3/uL (2.0-7.7); Basophil# 0.08 X10^3/uL; Basophil% 0.5 % (0-1); Eosinophil# 0.07 X10^3/uL; Eosinophils% 0.5 % (0-5); Hematocrit 44.7 % (37-47); Hemoglobin 14.9 g/dL (12.0-15.0); Lymphocyte # 3.86 X10^3/ul (0.83-4.51); Lymphocyte % 26.4 % (19-41); Mean Corp Hgb Conc 33.3 g/dL (32-36); Mean Corpuscular Hgb 30.4 pg (27.0-32.0); Mean Corpuscular Volume 91.2 fL (81-99); Mean Platelet Vol. 10.4 fl (6.2-12.0); Monocyte# 0.61 X10^3/uL; Monocyte% 4.2 % (0-10); NRBC Flagged by Analyzer 0 % (0-5); Neutrophil # 9.93 X10^3/uL (2.7-7.7); Neutrophil % 67.8 % (47-70); Platelet Count 306 K/mm3 (150-450); RBC Distribution Width CV 12.9 % (11.6-14.6); RBC Distribution Width SD 42.5 fl (35.1-43.9); White Blood Count 14.6 K/mm3 (4.4-11.0)
[2021-01-29 19:37] LABS: Squamous Epithelial Cells - UA 5-10 SEEN /hpf (5-10); White Blood Cells 5-10 SEEN /hpf (0-5)
[2021-01-29 19:38] LABS: Bacteria 2+ /hpf (None Seen); Internal QC Validated? YES +Cl - CLEAR BKGD; Pregnancy, Urine Negative Negative; Yeast-Urine 1+ /hpf (None Seen)
[2021-01-29 19:47] LABS: ALB/GLOB Ratio 0.9 RATIO (0.9-2.4); AST(SGOT) 26 U/L (15-37); Alanine Aminotransfer ALT/SGPT 43 U/L (13-56); Albumin, Serum 3.8 g/dL (3.2-5.0); Alkaline Phosphatase 116 U/L (45-117); Anion Gap 9 (5-15); BUN 9 mg/dL (7-18); BUN/Creat Ratio 9.7 RATIO (10-20); Calcium,Total 9.5 mg/dL (8.5-10.1); Chloride 108 mmol/L (98-107); Creatinine, Serum 0.93 mg/dL (0.55-1.02); EST Glomerular Filtration Rate 70 mL/min (>60); Est Glom Filt Rate - Afr Amer 85 mL/min (>60); Estimated Creatinine Clearance 82.35 ml/min; Globulin 4.1 g/dL (2.2-4.2); Glucose 98 mg/dL (74-106); Lipase 163 U/L (73-393); Potassium 3.7 mmol/L (3.5-5.1); Protein, Total 7.9 g/dL (6.4-8.2); Sodium Level 140 mmol/L (136-145)
[2021-01-29] MEDS: Ondansetron ODT 4 MG Tablet PO (19:48)
[2021-01-29] MEDS: Famotidine 20 MG Tablet 40 MG PO (21:01)
[2021-01-29 22:52] VITALS: BP 168/99; PULSE 87; RESP 16; O2SAT 99
== END 2021-01-29 22:53 | disposition home or self-care (01) ==
PROVIDERS: Emergency Provider Emergency Medicine
DX: R10.9 Unspecified abdominal pain (principal); M06.9 Rheumatoid arthritis, unspecified; E66.9 Obesity, unspecified; Z90.49 Acquired absence of other specified parts of digestive tract; Z87.19 Personal history of other diseases of the digestive system; Z85.850 Personal history of malignant neoplasm of thyroid
CPT/HCPCS: 80053; 81001; 81025; 83690; 85025; 99283; J2405

== ENCOUNTER → 2021-08-14 | Outpatient (CLI) | payer BC, SELFPAY ==
--- NOTE | 2021-08-14 11:39 | ECHOCS_ITS ---
Reason For Study: SOB, MR Procedure This was a 2D Doppler, Color Flow transthoracic echocardiogram. The study was technically difficult. Exam performed in department. Left Ventricle Normal LV size. Left ventricular systolic function is normal. The estimated ejection fraction is 55 %. Normal diastology for age. No regional wall motion abnormalities noted. Right Ventricle Normal RV size. Normal systolic function. Atria Normal left atrium. Normal right atrium. Mitral Valve Normal mitral valve. Tricuspid Valve Normal tricuspid valve. Pulmonic Valve Normal pulmonic valve. Great Vessels Normal aortic root. The pulmonary artery is normal size. Normal inferior vena cava. Pericardium/Pleural No pericardial effusion. Medication Accessed port. Diluted definity 2ml given slow IV push to enhance endocardial definition. MMode/2D Measurements & Calculations LVIDd: 5.1 cm IVSd: 1.1 cm Ao root diam: 3.4 cm LVIDs: 2.9 cm LVPWd: 0.92 cm RVDd: 3.3 cm FS: 43.6 % LAV(MOD-bp): 51.8 ml LVAd ap4: 30.7 cm2 LVAd ap2: 35.6 cm2 LAV(MOD-bp) Indexed: 22.3 ml/m2 LVLd ap4: 8.2 cm LVLd ap2: 9.0 cm LAV(MOD-sp2): 65.3 ml EDV(MOD-sp4): 92.0 ml EDV(MOD-sp2): 113.9 ml LAV(MOD-sp4): 31.0 ml EDV(sp4-el): 97.8 ml EDV(sp2-el): 119.4 ml LVAs ap4: 18.0 cm2 LVAs ap2: 21.5 cm2 LVLs ap4: 6.9 cm LVLs ap2: 7.6 cm ESV(MOD-sp4): 40.2 ml ESV(MOD-sp2): 50.5 ml ESV(sp4-el): 39.8 ml ESV(sp2-el): 52.0 ml EF(MOD-sp4): 56.3 % EF(MOD-sp2): 55.7 % EF(sp4-el): 59.3 % SV(MOD-sp4): 51.8 ml SV(MOD-sp2): 63.4 ml SV(sp4-el): 58.0 ml LA dimension(2D): 3.7 cm LA A4 area: 13.1 cm2 RA A4 area: 11.6 cm2 Doppler Measurements & Calculations MV E max alfredo: 79.1 cm/sec Lat Peak E' Alfredo: 11.3 cm/sec Med Peak E' Alfredo: 7.0 cm/sec MV A max alfredo: 86.6 cm/sec E/E' lat: 7.0 E/E' med: 11.2 MV E/A: 0.91 Ao V2 max: 145.0 cm/sec LV V1 max: 128.5 cm/sec PA V2 max: 87.5 cm/sec Ao max P.4 mmHg LV V1 max P.6 mmHg ECHO/Echo Complete W/ Contrast Interpretation Summary Normal LV size. Left ventricular systolic function is normal. The estimated ejection fraction is 55 %. Contrast injection was performed. Structurally normal valves. Ordering Physician: Malcolm Esteban Referring Physician: Edmond Broussard Performed By: Nila Villatoro RDCS
== END | disposition home or self-care (01) ==
LOC: CVS 11:38
PROVIDERS: PCP Family Medicine Sports Medicine; Referring Provider Internal Medicine Cardiovascular Disease; Visit Provider Internal Medicine Cardiovascular Disease
DX: I34.0 Nonrheumatic mitral (valve) insufficiency (principal); R06.02 Shortness of breath
CPT/HCPCS: 93306; Q9957; A4216; C8929

== ENCOUNTER → 2022-04-19 | Outpatient (CLI) | payer BC, SELFPAY ==
--- NOTE | 2022-04-19 10:18 | RAD_ITS ---
EXAM: XR CHEST, 2 VIEWS CLINICAL INDICATION: SOB TECHNIQUE: Frontal and lateral views of the chest. This report was created using [employer] report generation technology. COMPARISON: 01.15.20 FINDINGS: LUNGS AND PLEURAL SPACES: Unremarkable. No consolidation or edema. No pneumothorax. No effusion. HEART: Unremarkable. Cardiac silhouette not enlarged. MEDIASTINUM: Central airways and mediastinal contour are unremarkable. BONES/JOINTS: Unremarkable. SOFT TISSUES: Unremarkable. TUBES, LINES AND DEVICES: There is a right Port-A-Cath and/or mediport in place. The tip is in the superior vena cava. RAD/Chest PA and Lateral IMPRESSION: No acute findings in the chest. Electronically Signed: Sahil Bell MD at 15:12 EST ,
== END | disposition home or self-care (01) ==
PROVIDERS: PCP Family Medicine Sports Medicine; Referring Provider Internal Medicine Pulmonary Disease; Visit Provider Internal Medicine Pulmonary Disease
DX: R06.02 Shortness of breath (principal)
CPT/HCPCS: 71046

== ENCOUNTER 2022-05-08 10:08 | Emergency (ER) | payer BC, SELFPAY ==
[2022-05-08 10:09] VITALS: BP 154/90; PULSE 72; RESP 18; TEMP 36.2; O2SAT 99; BMI 42.8
--- NOTE | 2022-05-08 10:43 | CT_ITS ---
STUDY: CTA CHEST REASON FOR EXAM: Female, 41 years old. Dyspnea, pleuritic chest pain, pretest probability RADIATION DOSAGE (If Supplied By Facility): CTDIvol = ( 12.66 ) mGy, DLP = ( 533.52 ) mGycm TECHNIQUE: The examination was performed with the intravenous administration of IV 100mL Isovue-370. Post-processing of the angiographic images was performed, with multiplanar reformation and 3D reconstruction. Individualized dose optimization techniques were used for this CT. COMPARISON: June 09, 2018 FINDINGS: There are patchy and groundglass opacities within the anterior left upper lobe. There is a stable subpleural 5.3 mm nodule within the right lower lobe. Normal enhancement of the main pulmonary artery and right and left pulmonary arteries. Normal enhancement of the bilateral peripheral pulmonary arteries. There is no demonstrated pulmonary embolism. Normal thoracic aorta and visualized great vessels. There is no demonstrated aortic dissection. There are peripheral calcifications of the aortic arch. Normal heart and pericardium. There are no coronary artery calcifications. There is a right-sided Mediport in place with its tip terminating within the cavoatrial junction. Normal mediastinum. Normal hilar regions. Normal visualized trachea and bronchi. There are postsurgical changes of the left breast with surgical clips subcutaneous stranding and skin thickening there are surgical clips within the left axilla as well. There are degenerative changes of the thoracic spine. The limited images of the upper abdomen demonstrate a diffusely low in attenuation liver consistent with fatty infiltration. CT/CTA Chest W/WO Contrast IMPRESSION: No demonstrated pulmonary embolism or arterial dissection. Left upper lobe patchy and groundglass opacities may be secondary to focal pneumonia and/or inflammatory changes. Postsurgical changes of the left breast Fatty infiltration of the liver. Electronically Signed: Monica Trejo MD at 12:09 EST ,
[2022-05-08 11:27] LABS: Absolute Lymphocyte Count 1.56 X10^3/uL (0.83-4.51); Absolute Neutrophil Count 5.4 X10^3/uL (2.0-7.7); Basophil# 0.04 X10^3/uL; Basophil% 0.5 % (0-1); Eosinophils% 2.6 % (0-5); Hematocrit 39.4 % (37-47); Hemoglobin 12.8 g/dL (12.0-15.0); Lymphocyte # 1.56 X10^3/ul (0.83-4.51); Lymphocyte % 20.3 % (19-41); Mean Corp Hgb Conc 32.5 g/dL (32-36); Mean Corpuscular Hgb 30.5 pg (27.0-32.0); Mean Corpuscular Volume 93.8 fL (81-99); Mean Platelet Vol. 9.6 fl (6.2-12.0); Monocyte# 0.42 X10^3/uL; Monocyte% 5.5 % (0-10); NRBC Flagged by Analyzer 0 % (0-5); Neutrophil # 5.42 X10^3/uL (2.7-7.7); Neutrophil % 70.4 % (47-70); Platelet Count 282 K/mm3 (150-450); RBC Distribution Width CV 14.9 % (11.6-14.6); RBC Distribution Width SD 48.6 fl (35.1-43.9); White Blood Count 7.7 K/mm3 (4.4-11.0)
[2022-05-08 11:39] LABS: Anion Gap 5 (5-15); BUN 13 mg/dL (7-18); BUN/Creat Ratio 14.2 RATIO (10-20); Calcium,Total 9.8 mg/dL (8.5-10.1); Chloride 110 mmol/L (98-107); Creatinine, Serum 0.92 mg/dL (0.55-1.02); EST Glomerular Filtration Rate 71 mL/min (>60); Est Glom Filt Rate - Afr Amer 86 mL/min (>60); Glucose 103 mg/dL (74-106); Sodium Level 142 mmol/L (136-145)
[2022-05-08 13:46] VITALS: BP 139/74; PULSE 73; RESP 16; O2SAT 99
--- NOTE | 2022-05-08 14:00 | EDS_ITS ---
HPI History of Present Illness Chief Complaint: Shortness of Breath Detail of Chief Complaint: Dyspnea and pleuritic chest pain after clotted port irrigated Informant: patient Onset/Context/Timing Onset: Hours Context: sudden Timing: Continuous Quality: Positive for Dyspnea on exertion; Negative for Orthopnea, PND or Wheezing Current Severity: Mild Maximum Severity: Moderate Worsened by: Exertion; Not Worsened By Lying flat or Coughing Relieved by: Nothing Associated Symptoms cough; Negative for rhinorrhea, post nasal drip, ear pain, fever, sore throat, subjective, chills, sweats, clear sputum, white sputum, yellow sputum or green sputum Chest Pain: Positive for Intermittent and Pleuritic Narrative Narrative: Patient is a 41-year-old woman status post mastectomy left breast due to cancer with positive node and estrogen negative HER2 positive. Patient went in for routine blood work and follow-up. Her port was occluded. The port was infused with thrombolytic. 30 minutes later the port was flushed. Patient became acutely short of breath and complained of pleuritic chest pain and became flushed. She still reports shortness of breath. She denies prior history of DVT or PE. She denies leg pain, swelling discoloration. She denies hemoptysis. She denies fever, chills night sweats. She does report mild weight loss. She denies headache, visual, ocular auditory symptoms. She denies anginal equivalent symptoms. She denies GI symptoms. PE Risk Factors: Positive for Cancer; Negative for OCP + Smoking + > 35, Prior DVT or PE, Recent immobilization, Recent surgery or Recent travel Prior similar symptoms: No Recent Illness/Hospitalization: No PFSH PFSH Medical History Back pain Breast cancer History of hemorrhoids History of seizures History of thyroid cancer Loss of consciousness Neck pain Shoulder pain stereoelectroencephalography steroelectroencephalogy Home Medications levalbuterol HCl 0.63 mg/3 mL solution for nebulization 0.63 mg inhalation Q4H PRN PRN Asthma 12/29/12 [History Last Taken 03/04/13 21:00] citalopram 20 mg tablet 40 mg PO DAILY 05/01/18 [History Last Taken Unknown] lamotrigine 100 mg tablet 100 mg PO DAILY 05/01/18 [History Last Taken 05/07/18 05:30] lamotrigine 200 mg tablet 200 mg PO QHS 05/01/18 [History Last Taken Unknown] zonisamide 100 mg capsule 200 mg PO BID 06/09/18 [History Last Taken Unknown] albuterol sulfate 2.5 mg/3 mL (0.083 %) solution for nebulization 2.5 mg IH TID 01/15/20 [History Last Taken Unknown] diazepam 10 mg tablet 10 mg PO DAILY PRN Anxiety 01/15/20 [History Last Taken Unknown] levothyroxine 200 mcg tablet 200 mcg PO .COMPLEX 01/15/20 [History Last Taken Unknown] ondansetron 4 mg disintegrating tablet 4 mg PO Q8H PRN PRN Nausea #10 tabs 01/15/20 [Rx Last Taken Unknown] tramadol 50 mg tablet 50 mg PO Q6H PRN pain #12 tabs 03/24/20 [Rx Last Taken Unknown] pantoprazole 40 mg tablet,delayed release (Protonix) 40 mg PO DAILY #30 tabs 01/29/21 [Rx Last Taken Unknown] Allergy/AdvReac Type Severity Reaction Status Date / Time adhesive tape Allergy Rash Verified 05/08/22 10:14 cephalexin monohydrate Allergy Hives Verified 05/08/22 10:14 [From Keflex] levofloxacin [From Levaquin] Allergy Hives Verified 05/08/22 10:14 Penicillins [PCN] Allergy Anaphylaxis Verified 05/08/22 10:14 vancomycin Allergy Unknown Verified 05/08/22 10:14 Surgical History H/O thyroidectomy History of delivery History of cholecystectomy Social History (Updated 05/08/22 @ 14:[address] Jacob Mayo MD) household members: none Smoking Status: Never smoker alcohol intake: current alcohol intake frequency: a few times a month substance use type: does not use ROS ROS ED Constitutional Constitutional ED: Denies chills, fever(s), sweats or weight loss Eyes Eyes: Denies blurry vision, change in vision or diplopia ENT ENT ED: Denies ear pain, rhinorrhea or sore throat Cardiovascular Cardiovascular: Denies orthopnea or paroxysmal nocturnal dyspnea Respiratory/Chest Respiratory/Chest: Reports cough, dyspnea and dyspnea on exertion; Denies orthopnea, paroxysmal nocturnal dyspnea or sputum Gastrointestinal Gastrointestinal: Denies abdominal pain, constipation, diarrhea, melena, nausea or vomiting Genitourinary Genitourinary ED: Denies dysuria, hematuria or urinary frequency Musculoskeletal Musculoskeletal: Denies arthralgias, back pain, myalgias or neck pain Integumentary Reports rash; Denies Abrasions Neurologic Neurologic: Denies headache(s), paresthesias or weakness Psychiatric Psychiatric: Reports anxiety; Denies depression Hematologic/Lymphatic Hematologic/Lymphatic: Denies easy bleeding or easy bruising EXAM Physical Exam Const Vital Signs: 05/08/22 10:09 05/08/22 10:19 05/08/22 13:46 Temperature 97.1 F L Temperature Source Temporal Pulse Rate 72 73 Respiratory Rate 18 16 Respiratory Effort Short of Breath Labored Respiratory Depth Normal Respiratory Pattern Normal Blood Pressure 154/90 H 139/74 H Blood Pressure Mean 111 95 Pulse Ox 99 99 Oxygen Delivery Method Room Air Room Air Room Air Positive well nourished, well developed and obese; Negative for cachectic, contractures or unkempt General Appearance ED: well developed and NAD; Negative for unkempt, cachectic, contractures or pallor Nutritional Appearance: obese; Negative for cachectic HEENT Reports moist mucous membranes atraumatic Eyes PERRL and EOMs intact bilaterally General Eye ED: Negative for pale conjunctiva or scleral icterus Neck no lymphadenopathy, supple, no meningeal signs and no JVD Resp normal respiratory effort and clear to auscultation bilaterally Cardio regular rate, regular rhythm, S1 normal heart sound, S2 normal heart sound and no murmurs GI non-tender, non-distended and no masses Auscultation: normoactive bowel sounds Palpation: soft Back/Spine no CVA tenderness Extremity normal to inspection General Extremety ED: Negative for edema or tenderness General Extremity: Negative for edema Neuro oriented x3, CN's II-XII intact bilaterally and no sensory deficits noted Sensorium / Orientation: alert Psych Appearance: Negative for unkempt Skin no wounds and skin turgor normal Skin Narrative: Blanching erythema upper anterior chest and anterior neck. General Skin Exam: Negative for jaundice or pallor Lesions: no lesions Rashes: No no rashes and rashes noted MDM MDM MDM Narrative Medical decision making narrative: Patient presents with dyspnea pleuritic chest pain after occluded port was flushed. The port was flushed after thrombotic solution was placed 30 minutes prior. She states she abruptly got short of breath Or chest pain. She was instructed to come to the emergency room or an ambulance to be called. Patient has a moderate to high probability for PE. This may also represent an atypical pneumonia versus reaction to medication. She does have history of asthma. There is no wheezing. History & Record Review Discussion w/independent historian: Patient Additional record(s) reviewed:: Prior inpatient record (Patient is status post mastectomy 2021. Positive lymph nodes. She was estrogen negative HER2 positive.) and Prior outpatient record Lab Data Attestation: I reviewed the patient's lab results. Labs: Laboratory Results - last 24 hr 05/08/22 05/08/22 11:15 11:15 WBC 7.7 RBC 4.20 Hgb 12.8 Hct 39.4 MCV 93.8 MCH 30.5 MCHC 32.5 RDW Std Deviation 48.6 H RDW Coeff of Brinda 14.9 H Plt Count 282 MPV 9.6 Immature Gran % (Auto) 0.700 Neut % (Auto) 70.4 H Lymph % (Auto) 20.3 [place] % (Auto) 5.5 Eos % (Auto) 2.6 Baso % (Auto) 0.5 Absolute Neuts (auto) 5.4 Absolute Lymphs (auto) 1.56 Nucleated RBC % 0 Sodium 142 Potassium 4.0 Chloride 110 H Carbon Dioxide 27.0 Anion Gap 5 BUN 13 Creatinine 0.92 Estim Creat Clear Calc 82.40 Est GFR (MDRD) Af Amer 86 Est GFR (MDRD) Non-Af 71 BUN/Creatinine Ratio 14.2 Glucose 103 Calcium 9.8 Radiography Diagnostic Testing: Clinical Impression(s) from Imaging Studies Chest CTA 05/08/22 10:43 IMPRESSION: No demonstrated pulmonary embolism or arterial dissection. Left upper lobe patchy and groundglass opacities may be secondary to focal pneumonia and/or inflammatory changes. Postsurgical changes of the left breast Fatty infiltration of the liver. Electronically Signed: Monica Trejo MD at 12:09 EST , Management Discussion w/another healthcare provider: Business Office Technology Instructor (Spoke to her oncologist. He believes this is due to radiation changes since she is status post radiation therapy. In light of this antibiotics will not be given.) Discharge Plan Triage Chief Complaint: Shortness of Breath ED Provider: Jacob Mayo Dx/Rx/DC Orders Clinical Impression: Acute dyspnea, SLE (systemic lupus erythematosus), Rheumatoid arthritis, Pleuritic chest pain, Malignant neoplasm of left breast in female, estrogen receptor negative, Post-radiation pneumonitis Instructions: ED Dyspnea Prescriptions: No Action levalbuterol HCl 0.63 MG/3 ML solution for nebulization 0.63 mg INHALATION Q4H PRN PRN (Reason: Asthma) Label Comments: asthma lamotrigine 200 MG tablet 200 mg PO QHS citalopram 20 MG tablet 40 mg PO DAILY lamotrigine 100 MG tablet 100 mg PO DAILY zonisamide 100 MG capsule 200 mg PO BID albuterol sulfate 2.5 MG/3 ML solution for nebulization 2.5 mg IH TID levothyroxine 200 MCG tablet 200 mcg PO .COMPLEX Rx Instructions: 1 tab motuwethfrsa, 1/2 tab hammer diazepam 10 MG tablet 10 mg PO DAILY PRN (Reason: Anxiety) ondansetron 4 MG tablet 4 mg PO Q8H PRN PRN (Reason: Nausea) Qty: 10 0RF pantoprazole [Protonix] 40 mg tablet,delayed release (DR/EC) 40 mg PO DAILY Qty: 30 0RF tramadol 50 mg tablet 50 mg PO Q6H PRN (Reason: pain) Qty: 12 0RF Primary Care Provider: Vandana Child Referrals: Vandana Child MD [Primary Care Provider] - Activity Restrictions/Additional Instructions: If you develop a cough, fever or increased shortness of breath contact Dr. Broussard. Disposition Disposition: Home, Self Care
--- NOTE | 2022-05-08 14:38 | ED.RN ---
PORT FLUSHED WITH NS AND HEPARIN PRIOR TO DE-ACCESSING
== END 2022-05-08 14:38 | disposition home or self-care (01) ==
PROVIDERS: Emergency Provider Emergency Medicine; PCP Family Medicine Sports Medicine; Visit Provider Emergency Medicine
DX: J70.0 Acute pulmonary manifestations due to radiation (principal); M32.9 Systemic lupus erythematosus, unspecified; M06.9 Rheumatoid arthritis, unspecified; Z90.12 Acquired absence of left breast and nipple; E66.9 Obesity, unspecified; Z85.3 Personal history of malignant neoplasm of breast; Z92.3 Personal history of irradiation
CPT/HCPCS: 36591; 71275; 80048; 85025; 99285; Q9967; A4216

== ENCOUNTER 2022-07-23 11:08 | Outpatient (CLI) | payer BC, SELFPAY | END 2022-07-23 11:09 | disposition home or self-care (01) | LOC: MEDOUTP 11:09 | PROVIDERS: PCP Family Medicine Sports Medicine; Referring Provider Anesthesiology; Visit Provider Anesthesiology | DX: Z01.818 Encounter for other preprocedural examination (principal) | CPT/HCPCS: 36415; 36591; 84443; 85027; 85730; A4216 ==

== ENCOUNTER 2022-07-25 11:32 | Day surgery (SDC) | payer BC, SELFPAY ==
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
--- NOTE | 2022-07-23 10:41 | EKG12_ITS ---
Test Reason : PREOP Blood Pressure : / mmHG Vent. Rate : 070 BPM Atrial Rate : 070 BPM P-R Int : 162 ms QRS Dur : 090 ms QT Int : 400 ms P-R-T Axes : 053 036 045 degrees QTc Int : 432 ms Normal sinus rhythm Normal ECG Confirmed by JAY CHAUDHARY, HALEIGH ([id number]), editor sound GERHARD ALLISON ([id number]) on 07/23/2022 1:17:40 PM Referred By: Marissa Melo Confirmed By:HALEIGH THOMPSON MD
[2022-07-23 11:40] LABS: Hematocrit 39.4 % (37-47); Hemoglobin 12.7 g/dL (12.0-15.0); Mean Corp Hgb Conc 32.2 g/dL (32-36); Mean Corpuscular Hgb 32.4 pg (27.0-32.0); Mean Corpuscular Volume 100.5 fL (81-99); Mean Platelet Vol. 9.8 fl (6.2-12.0); Platelet Count 249 K/mm3 (150-450); RBC Distribution Width CV 15.6 % (11.6-14.6); RBC Distribution Width SD 57.1 fl (35.1-43.9); Red Blood Count 3.92 M/mm3 (4.2-5.4); White Blood Count 9.5 K/mm3 (4.4-11.0)
[2022-07-23 11:51] LABS: Partial Thromboplast Time 40.2 Seconds (24.1-36.2)
[2022-07-23 19:35] LABS: Xtra Tube EP Lab EXTRA TUBE
--- NOTE | 2022-07-25 | OV_PTH ---
PATIENT: NAVIN LEVY LOC: [facility] [place] U#:[id number] AGE/SX: 41/F ROOM: RE07/25/[address]: Dr. Marissa Melo MD : 1980 BED: DIS: 07/25/2022 SPEC #: [id number] RECD: 07/25/22 15:55 STATUS: DUTCH MCCLENDON #: [id number] DAYANA: 07/25/22 00:[address]: Marissa Melo DEPT: SURGICAL PATHOLOGY RECD BY: Elieser Martin ENTERED: 07/26/22 10:00 SP TYPE: OVARY OTHR DR: Dr. Vandana Child MD Tissues: A - Right ovary B - Left ovary Procedures: Special Stain Group I Surgery Specimen Level IV AFB Stain (control) GMS Stain (control) HEADER OPERATION: Laparoscopic salpingo-oophorectomy PRE-OP DIAGNOSIS: Estrogen receptor breast cancer TISSUE SUBMITTED: A ? Right tube and ovary, B ? Left tube and ovary MICROSCOPIC DIAGNOSIS A. Right tube and ovary, salpingo-oophorectomy: Fallopian tube - focal granulomatous inflammation in the adipose tissue adjacent to the fallopian tube. - Organizing thrombus formation in small blood vessel in the adipose tissue adjacent to the fallopian tube. See comment. Ovary ? corpora albicans, mesothelial inclusion cysts and focal calcifications. B. Left tube and ovary, salpingo-oophorectomy: Fallopian tube - no pathologic diagnosis. Ovary ? corpora albicans and mesothelial inclusion cysst. SJ:guillaume 07/30/2022 COMMENT A. Special stains for acid fast bacilli and fungi are negative for organisms; matched controls are appropriate. Case has been reviewed in consultation with Dr. Conde who concurs with the above diagnosis. IDC:AM MICROSCOPIC DESCRIPTION Slides are reviewed. GROSS DESCRIPTION A - Received in fixative is one container labeled with the patient's name and designated right tube and ovary. The specimen consists of a fallopian tube and ovary. The fallopian tube measures 4.0 cm in length and 0.6 cm in diameter. The ovary is present separately and measures 4.0 x 3.0 x 1.5 cm. A focal area of fimbrial end is adherent to the ovary. Sections of fallopian tube reveal unremarkable cut surfaces. The outer surface of ovary is unremarkable. A cyst is also noted filled with clear fluid measuring 0.5 cm in greatest dimension. Food Service Counter Clerk sections are submitted in four cassettes as follows: 1 - fallopian tube, 24??ovary. B - Received in fixative is one container labeled with the patient's name and designated left tube and ovary. The specimen consists of a fallopian tube and adjacent ovary. The fallopian tube measures 4.5 cm in length and 0.6 cm in diameter. The fimbrial end is identified. Sections reveal unremarkable cut surfaces. The ovary measures 3.0 x 2.5 x 1.5 cm. Sections reveal unremarkable cut surfaces. Food Service Counter Clerk sections are submitted in three cassettes as follows: 1 - fallopian tube, 2 & 3??ovary. / SJ:rg 07/26/2022 TC:1 CPT: 21039 x2, 72698 x2
[2022-07-25 12:04] LABS: Internal QC Validated? YES +Cl - CLEAR BKGD; Pregnancy, Urine Negative Negative
[2022-07-25] MEDS: Lactated Ringers 1,000 ML 15 ML IV (12:07)
[2022-07-25] MEDS: Acetaminophen 500 MG Tablet 1000 MG PO (12:08)
[2022-07-25] MEDS: Ketorolac 30 MG/ML Syringe IV (12:08)
[2022-07-25] MEDS: Scopolamine 1mg/72hr Patch 1 PATCH TD (12:08)
[2022-07-25 12:12] VITALS: BP 123/87; PULSE 70; RESP 17; TEMP 36.8; O2SAT 100; BMI 44.2
--- NOTE | 2022-07-25 12:28 | SUR.PREOP ---
PT PLACED IN SEIZURE PRECAUTIONS, PADDED SIDE RAILS IN PLACE. FAMILY AT BEDSIDE.
--- NOTE | 2022-07-25 13:41 | DCINST_ITS ---
Discharge Instructions Diet Discharge Diet: Light diet - advance as tolerated Activity May shower in (days): 1 May resume sexual activity in: 1-2 weeks Lifting Restrictions: 10 lbs x 2 weeks Dressing / Incision Call your doctor if your incision/area has: Sudden Increased Bleeding, Increased Pain/ Swelling, Foul Smelling Discharge and Swelling at the incision site Call your doctor if you observe: Fever of 101 or Higher and Using more than 1 pad per hour Cleanse incision/area with: Soap & Water (Your incisions have skin glue, it can get wet. Leave it on for at least 10 days) Follow Up Care Please Follow Up With: Marissa Melo MD When: 7-10 days or as needed. Call [phone] or send a [employer] message for nonurgent questions. Call [phone] if you have an urgent issue to have the production control technologist provider paged. Test Results: Test results from this visit will be discussed in further detail at your follow- up appointment, if applicable. Discharge Plan Admission Primary Reason for Your Visit: Laparoscopic bilateral salpingoophorectomy Attending Provider: Marissa Melo Primary Care Provider: Vandana Child Discharge Orders/Prescriptions Prescriptions: No Action lamotrigine 200 MG tablet 200 mg PO BID zonisamide 100 MG capsule 300 mg PO BID levothyroxine 200 MCG tablet 200 mcg PO QHS diazepam 10 MG tablet 10 mg PO DAILY PRN (Reason: Anxiety) anastrozole 1 mg Tablet 1 mg PO DAILY Lupron Depot 3.75 mg Injectable 3.75 mg IM QMONTH meloxicam [Mobic] 15 mg Tablet 15 mg PO QHS oxycodone-acetaminophen [Percocet] 5-325 mg Tablet 1 tab PO Q6H PRN (Reason: Pain) promethazine [Phenergan] 25 mg Tablet 25 mg PO Q6H PRN (Reason: Nausea) leucovorin calcium 5 mg Tablet 5 mg PO FR ergocalciferol (vitamin D2) [Vitamin D2] 1,250 mcg (50,000 unit) Capsule 1,250 mcg PO MO propranolol 20 mg Tablet 20 mg PO BID clonazepam 0.5 mg Tablet,Disintegrating 0.5 mg PO PRN tizanidine 4 mg Capsule 4 mg PO QHS zoledronic [id number] [Zometa] 4 mg/100 mL Piggyback 4 mg IV .Q3MO clobazam [Onfi] 10 mg Tablet 20 mg PO QHS methotrexate (PF) 25 mg/mL Syringe 6.6 mg SUBCUT TH Referrals / Follow Up: Vandana Child MD [Primary Care Provider] - Disposition Disposition (needs filled in before D/C Order can be placed): Home, Self Care
[2022-07-25] MEDS: Bupivacaine Mpf 0.5% 30 ML VIAL (14:00)
--- NOTE | 2022-07-25 14:52 | PCM.OPRPT ---
Problems Associated Problem List Diagnoses (1) Carcinoma of breast, estrogen receptor positive: Report of Operation Date of Procedure: 07/25/22 Pre-Operative Diagnosis: need for surgical menopause due to estrogen receptor + breast cancer Post-Operative Diagnosis: same Surgery/Procedure Performed:: Laparoscopic BSO Description of Surgical Findings:: normal cervix, vagina, uterus and tubes Surgeon: Marissa Melo erp implementation consultant: Maria L Worrell Type of Anesthesia: General Anesthesiologist: Catherine Moe Special Medications: none Specimen's removed: bilateral tubes and ovaries Drains: none Estimated Blood Loss (mL): 20 Fluids Replaced: 1000 Description of Procedure: The patient was taken to the operating room where she was prepped and draped in the dorsolithotomy position. A weighted speculum was placed in the vagina and the anterior lip of the cervix was grasped with a tenaculum. The Conn cannula uterine manipulator was placed and the remainder of the instruments were removed from the vagina. Attention was turned to the abdomen. All port sites were infiltrated with 0.5% Marcaine before skin incisions were made. A 15mm infraumbilical incision was made. The incision was carried down to the fascia. The fascia was grasped with Carlton clamps and tented up. The fascia was incised with a scalpel. I then confirmed intraperitoneal placement. The fascia was tagged with 0 Vicryl suture. The García trocar was then placed and the balloon inflated. The stay sutures were secured to the García trocar. Intraperitoneal placement was confirmed with the laparoscope. The pneumoperitoneum was created and the underlying abdominal contents were intact. The patient was placed in Trendelenburg. 5mm right and left lower quadrant ports were placed under direct visualization lateral to the inferior epigastric vessels. The bowel was swept away and the above findings were noted. The [right] infundibulopelvic ligament was clamped, sealed and transected with the LigaSure device. The antimesenteric portions of the tube were clamped, sealed and transected. The utero-ovarian ligaments were clamped sealed and transected with the LigaSure device . The left ovary was somewhat adhered to the posterior cul-de-sac. These were filmy adhesions and were able to be taken down with blunt dissection. The same procedure was performed on the contralateral side. The specimens were placed in an bag and removed through the [umbilical] incision. The pedicles were again examined and found to be hemostatic. There was a small amount of oozing from where the adhesions were taken down in the posterior cul-de-sac. Some Yoel was placed over this area and hemostasis was noted. The umbilical port fascia was closed with 0 Vicryl suture in a running standard fashion. Some Yoel was placed in the subcutaneous tissue. The subcutaneous tissue was reapproximated in 2 layers with Monocryl suture. The skin was then closed with Monocryl suture.. The lateral ports were removed under direct visualization and no active bleeding was noted. The pneumoperitoneum was released. The skin incisions were closed with Monocryl suture in a subcuticular fashion and skin glue . The vaginal instruments were removed and the vaginal sweep was completed by me. The entire procedure was performed by me with assistance. All sponge and needle counts were correct and the patient was taken to the recovery room in stable condition. Grafts/Implants Used: none Procedure Start Time: 14:00 Procedure Stop Time: 14:46 Complications none Admit VTE Documentation VTE Present on Admission: No VTE Mechan Device Prophylaxis: SCD's VTE Pharm Prophylaxis ordered?: No Reason prophylaxis not ordered:: Procedure Not Indicated
[2022-07-25 15:02] VITALS: BP 119/71; BP 123/87; PULSE 74; RESP 16; TEMP 36.4; O2SAT 95
[2022-07-25 15:10] VITALS: BP 123/87; O2SAT 89
[2022-07-25 15:14] VITALS: BP 123/69; BP 123/87; PULSE 70; RESP 16; O2SAT 97
[2022-07-25 15:31] VITALS: BP 123/87; BP 129/90; PULSE 72; RESP 16; TEMP 36.2; O2SAT 97
[2022-07-25 15:53] VITALS: BP 123/87
== END 2022-07-25 16:21 | disposition home or self-care (01) ==
LOC: SDC 11:33 → AC 11:34
PROVIDERS: Anesthesiology; PCP Family Medicine Sports Medicine; Referring Provider Obstetrics & Gynecology; Visit Provider Obstetrics & Gynecology
PROC: (CPT 58661; principal; 2022-07-25 12:40)
DX: C50.919 Malignant neoplasm of unspecified site of unspecified female breast (principal); Z17.0 Estrogen receptor positive status [ER+]; N83.292 Other ovarian cyst, left side; N83.291 Other ovarian cyst, right side; M79.7 Fibromyalgia; F43.10 Post-traumatic stress disorder, unspecified; Z79.1 Long term (current) use of non-steroidal anti-inflammatories (NSAID); Z79.890 Hormone replacement therapy; Z79.899 Other long term (current) drug therapy
CPT/HCPCS: 58661; 00840; 36415; 81025; 84443; 85027; 85730; 86850; 86900; 86901; 88305; 88312; 93005; J7120; J2405

== ENCOUNTER → 2022-08-21 | Outpatient (CLI) | payer BC, SELFPAY ==
--- NOTE | 2022-08-21 13:11 | RAD_ITS ---
INDICATION: Other cervical disc degeneration, unspecified cervical region EXAMINATION/TECHNIQUE: X-RAY - XR Spine Lumbar 2 or 3 Views COMPARISON: No comparison. FINDINGS: 2 views of the lumbar spine. BONES: Normal anatomic alignment without evidence of fracture or subluxation. No concerning bony lesion or abnormal sclerosis to suggest lesion. DISCS/JOINTS: No significant degenerative change. SOFT TISSUES: Unremarkable. RAD/Lumbar Spine 2 or 3 Views IMPRESSION: Unremarkable lumbar spine. If there is persistent clinical concern for spine fracture and this is a trauma patient, recommend dedicated lumbar spine CT. Electronically Signed: Michelet Gonzales MD at 3:13 EDT ,
--- NOTE | 2022-08-21 13:13 | RAD_ITS ---
INDICATION: Other cervical disc degeneration, unspecified cervical region EXAMINATION/TECHNIQUE: X-RAY - XR Spine Cervical 2 or 3 Views COMPARISON: No comparison. FINDINGS: 3 views of the cervical spine. BONES: Normal anatomic alignment without evidence of fracture or subluxation. No concerning bony lesion or abnormal sclerosis to suggest lesion. DISCS/JOINTS: Incidental C3-C4 developmental segmentation anomaly. No significant degenerative change. SOFT TISSUES: Unremarkable. RAD/Cerv Spine 2 or 3 Views IMPRESSION: Unremarkable cervical spine. If there is persistent clinical concern for spine fracture and this is a trauma patient, recommend dedicated cervical spine CT. Electronically Signed: Michelet Gonzales MD at 1:39 EDT ,
== END | disposition home or self-care (01) ==
LOC: RAD 13:09
PROVIDERS: PCP Family Medicine Sports Medicine; Referring Provider Anesthesiology Pain Medicine; Visit Provider Anesthesiology Pain Medicine
DX: M50.30 Other cervical disc degeneration, unspecified cervical region (principal); M51.36 Other intervertebral disc degeneration, lumbar region; M51.37 Other intervertebral disc degeneration, lumbosacral region
CPT/HCPCS: 72040; 72100

== ENCOUNTER → 2022-08-30 | Outpatient (CLI) | payer BC, SELFPAY ==
--- NOTE | 2022-08-30 12:30 | MRI_ITS ---
STUDY: MRI LUMBAR SPINE WITHOUT CONTRAST REASON FOR EXAM: Female, 41 years old. LUMBAR RADICULOPATHY TECHNIQUE: Standardized fat and water weighted pulse sequences were obtained in the sagittal and axial planes. COMPARISON: None FINDINGS: No evidence for acute fracture or subluxation. There are multiple small interosseous hemangiomata. T12-L1: Normal endplates. Normal disc height, hydration and morphology. Normal bilateral facet joints. Normal central canal and bilateral lateral recesses. Normal bilateral intervertebral neural foramina. Normal lumbar lordosis. There is no substantial scoliosis. Normal conus medullaris that terminates at L1 L1-2: Normal endplates. Normal disc height, hydration and morphology. Normal bilateral facet joints. Normal central canal and bilateral lateral recesses. Normal bilateral intervertebral neural foramina. L2-3: Normal endplates. Normal disc height, hydration and morphology. Normal bilateral facet joints. Normal central canal and bilateral lateral recesses. Normal bilateral intervertebral neural foramina. L3-4: Normal endplates. Normal disc height, hydration and morphology. Normal bilateral facet joints. Normal central canal and bilateral lateral recesses. Normal bilateral intervertebral neural foramina. L4-5: Normal endplates. Normal disc height, desiccation and minor annular bulge.. Mild facet arthropathy.. Normal central canal and bilateral lateral recesses. Mild bilateral neural foraminal encroachment. L5-S1: Normal endplates. Normal disc height, hydration and tiny central disc protrusion.. Mild facet arthropathy.. Normal central canal and bilateral lateral recesses. Normal bilateral intervertebral neural foramina. Normal visualized sacral ala. Normal visualized paraspinous soft tissue structures. MRI/Spine Lumbar (Routine) IMPRESSION: No evidence for acute fracture or other significant bony pathology.. Mild bilateral neural foraminal stenosis at L4-5 secondary to minor bulging of the disc and facet arthropathy. Tiny central disc protrusion at L5-S1 without spinal stenosis Electronically Signed: Balbir Dasilva MD at 17:49 EDT ,
== END | disposition home or self-care (01) ==
LOC: MRI 12:15
PROVIDERS: PCP Family Medicine Sports Medicine; Referring Provider Anesthesiology Pain Medicine; Visit Provider Anesthesiology Pain Medicine
DX: M54.16 Radiculopathy, lumbar region (principal)
CPT/HCPCS: 72148

== ENCOUNTER 2022-12-10 13:28 | Emergency (ER) | payer BC, SELFPAY ==
[2022-12-10 13:30] VITALS: BP 133/87; PULSE 75; RESP 18; TEMP 36.4; O2SAT 100; BMI 42.1
--- NOTE | 2022-12-10 16:15 | EX.ED.DYSGE1 ---
HPI History of Present Illness Chief Complaint: Cellulitis Informant: patient Narrative Narrative: 42-year-old female presenting to the emergency department with a possible abscess of the right axilla. Patient states that on the third she noticed some swelling and brownish drainage in the right axilla. She has a history of breast cancer and is in the evaluation for possible metastasis to the sternum. She saw her surgeon on 05 December. She states there is an ultrasound that showed a sebaceous cyst. She notes some erythema extending towards the breast on the right side. She did not have any axillary dissection or mastectomy on the right. All surgical work was done on the left. She denies any fevers. Patient notes she has a active working right-sided chest port [facility] Medical History Anemia Anxiety Asthma Back pain Cancer Depression Fatty liver History of hemorrhoids History of steroid therapy History of stress test History of thyroid cancer Hx of transesophageal echocardiography (GREGORY) for monitoring Loss of consciousness Migraine headache Neck pain Non-smoker Port-A-Cath in place Restless legs Rheumatoid arthritis Seizures Seizures Shortness of breath on exertion Shoulder pain stereoelectroencephalography steroelectroencephalogy Thyroid disease Home Medications lamotrigine 200 mg tablet 200 mg PO BID 05/01/18 [History Last Taken 07/25/22] zonisamide 100 mg capsule 300 mg PO BID 06/09/18 [History Last Taken 07/25/22] diazepam 10 mg tablet 10 mg PO DAILY PRN Anxiety 01/15/20 [History Last Taken Unknown] levothyroxine 200 mcg tablet 200 mcg PO QHS 01/15/20 [History Last Taken Unknown] anastrozole 1 mg tablet 1 mg PO DAILY 07/18/22 [History Last Taken Unknown] clobazam 10 mg tablet (Onfi) 20 mg PO QHS 07/18/22 [History Last Taken Unknown] clonazepam 0.5 mg disintegrating tablet 0.5 mg PO PRN SEIZURE 07/18/22 [History Last Taken Unknown] ergocalciferol (vitamin D2) 1,250 mcg (50,000 unit) capsule (Vitamin D2) 1,250 mcg PO MO 07/18/22 [History Last Taken Unknown] leucovorin calcium 5 mg tablet 5 mg PO FR 07/18/22 [History Last Taken Unknown] leuprolide 3.75 mg intramuscular 3.75 mg IM QMONTH 07/18/22 [History Last Taken 06/05/22] meloxicam 15 mg tablet 15 mg PO QHS 07/18/22 [History Last Taken Unknown] methotrexate (PF) 25 mg/mL subcutaneous syringe 6.6 mg subcut TH 07/18/22 [History Last Taken Unknown] oxycodone-acetaminophen 5 mg-325 mg tablet (Percocet) 1 tab PO Q6H PRN Pain 07/18/22 [History Last Taken Unknown] promethazine 25 mg tablet 25 mg PO Q6H PRN Nausea 07/18/22 [History Last Taken Unknown] propranolol 20 mg tablet 20 mg PO BID 07/18/22 [History Last Taken 07/25/22] tizanidine 4 mg capsule 4 mg PO QHS 07/18/22 [History Last Taken Unknown] zoledronic acid 4 mg/100 mL in mannitol 5 %-water intravenous piggybck 4 mg IV .Q3MO 07/18/22 [History Last Taken Unknown] sulfamethoxazole 800 mg-trimethoprim 160 mg tablet 1 tab PO BID #14 TABLETS 12/10/22 [Rx Last Taken Unknown] Allergy/AdvReac Type Severity Reaction Status Date / Time adhesive tape Allergy Rash Verified 12/10/22 13:30 cephalexin monohydrate Allergy Hives Verified 12/10/22 13:30 [From Keflex] levofloxacin [From Levaquin] Allergy Hives Verified 12/10/22 13:30 Penicillins [PCN] Allergy Anaphylaxis Verified 12/10/22 13:30 vancomycin Allergy Unknown Verified 12/10/22 13:30 Surgical History H/O thyroidectomy History of delivery History of cholecystectomy History of esophagogastroduodenoscopy (EGD) History of hysteroscopy Hx of brain surgery Hx of breast surgery Hx of laparoscopy Hx of left mastectomy Social History household members: none Smoking Status: Never smoker alcohol intake: current alcohol intake frequency: a few times a month substance use type: does not use ROS ROS ED Constitutional Constitutional ED: Denies chills, fever(s) or weight loss Eyes Eyes: Denies change in vision or diplopia ENT ENT ED: Denies ear pain, rhinorrhea or sore throat Cardiovascular Cardiovascular: Denies chest pain, orthopnea, palpitations or racing heartbeat Respiratory/Chest Respiratory/Chest: Denies cough, dyspnea or orthopnea Gastrointestinal Gastrointestinal: Denies abdominal pain, diarrhea, nausea or vomiting Genitourinary Genitourinary ED: Denies dysuria, hematuria or urinary frequency Musculoskeletal Musculoskeletal: Denies arthralgias or myalgias Integumentary Reports abscess and rash Neurologic Neurologic: Denies headache(s) or weakness Psychiatric Psychiatric: Denies anxiety, depression, suicidal ideation or suicidal thoughts Endocrine Endocrinology: Denies polydipsia, polyphagia or polyuria Allergic/Immunologic Allergic/Immunologic ED: Denies mouth swelling, tongue swelling or urticaria EXAM Physical Exam Const Vital Signs: 12/10/22 13:30 Temperature 97.5 F L Temperature Source Temporal Pulse Rate 75 Respiratory Rate 18 Blood Pressure 133/87 H Blood Pressure Mean 102 Pulse Ox 100 Oxygen Delivery Method Room Air Positive well nourished and well developed General Appearance ED: well developed HEENT Reports normocephalic, head/scalp atraumatic and moist mucous membranes Eyes PERRL and EOMs intact bilaterally Neck no lymphadenopathy, supple and no JVD Resp normal respiratory effort and clear to auscultation bilaterally Cardio regular rate, regular rhythm and no murmurs GI normal to inspection, nondistended, normoactive bowel sounds and non-tender Palpation: soft Back/Spine no CVA tenderness and normal ROM Extremity Extremity Narrative: See skin exam General Extremety ED: Negative for edema General Extremity: Negative for edema Neuro oriented x3 and CN's II-XII intact bilaterally Sensorium / Orientation: alert Motor Exam: strength 5/5 throughout Psych mental status grossly normal Mood & Affect: Negative for depressed or tearful Skin Skin Narrative: There is a 3 to 4 cm area of firmness/swelling in the anterior aspect of the right axilla. There is some mild erythema in this region with tenderness and a small amount of fluctuance. The arm is not swollen. The swelling is not approaching the port site at this time. MDM MDM MDM Narrative Medical decision making narrative: Patient provided written informed consent for incision and drainage of axillary wound. Prior to incision and drainage a ultrasound was obtained which demonstrates 2 small half centimeter by half centimeter pockets of fluid. They are without blood flow on ultrasound. Local 1% lidocaine used used to anesthetize the wound. A cruciate incision was made over the anterior most pocket. Hemostats were used to enter both pockets through the same incision. Small amount of purulence was obtained. Approximately 9 inches of iodoform quarter inch packing was placed. Patient tolerated procedure well. Unfortunately only 1 set of cultures was able to be obtained by the lab draw. White count 10.8. Her port was accessed but it does not draw but it does flow appropriately. We are to try for at least 1 set off the port. Patient will be started on Bactrim. I have asked for follow-up within 72 hours by her surgeon. Lab Data Attestation: I reviewed the patient's lab results. Labs: Laboratory Results - last 24 hr 12/10/22 18:15 WBC 10.8 RBC 4.07 L Hgb 12.9 Hct 39.8 MCV 97.8 MCH 31.7 MCHC 32.4 RDW Std Deviation 48.0 H RDW Coeff of Brinda 13.6 Plt Count 259 MPV 10.0 Immature Gran % (Auto) 0.700 Neut % (Auto) 72.4 H Lymph % (Auto) 17.5 L [place] % (Auto) 5.5 Eos % (Auto) 3.3 Baso % (Auto) 0.6 Absolute Neuts (auto) 7.8 H Absolute Lymphs (auto) 1.88 Nucleated RBC % 0 Discharge Plan Triage Chief Complaint: Cellulitis ED Provider: Lonny Darden Dx/Rx/DC Orders Clinical Impression: Infected sebaceous cyst Instructions: ED Abscess Incision And Drainage Prescriptions: New sulfamethoxazole-trimethoprim [sulfamethoxazole-trimethoprim] 800-160 mg tablet 1 tab PO BID Qty: 14 0RF No Action lamotrigine 200 MG tablet 200 mg PO BID zonisamide 100 MG capsule 300 mg PO BID levothyroxine 200 MCG tablet 200 mcg PO QHS diazepam 10 MG tablet 10 mg PO DAILY PRN (Reason: Anxiety) anastrozole 1 mg Tablet 1 mg PO DAILY Lupron Depot 3.75 mg Injectable 3.75 mg IM QMONTH meloxicam [Mobic] 15 mg Tablet 15 mg PO QHS oxycodone-acetaminophen [Percocet] 5-325 mg Tablet 1 tab PO Q6H PRN (Reason: Pain) promethazine [Phenergan] 25 mg Tablet 25 mg PO Q6H PRN (Reason: Nausea) leucovorin calcium 5 mg Tablet 5 mg PO FR ergocalciferol (vitamin D2) [Vitamin D2] 1,250 mcg (50,000 unit) Capsule 1,250 mcg PO MO propranolol 20 mg Tablet 20 mg PO BID clonazepam 0.5 mg Tablet,Disintegrating 0.5 mg PO PRN tizanidine 4 mg Capsule 4 mg PO QHS zoledronic [id number] [Zometa] 4 mg/100 mL Piggyback 4 mg IV .Q3MO clobazam [Onfi] 10 mg Tablet 20 mg PO QHS methotrexate (PF) 25 mg/mL Syringe 6.6 mg SUBCUT TH Primary Care Provider: Vandana Child Referrals: Vandana Child MD [Primary Care Provider] - Activity Restrictions/Additional Instructions: Please follow-up with your surgeon within 72 hours for wound check. Packing will need to be removed 72 hours. Disposition Disposition: Home, Self Care
[2022-12-10] MEDS: Lidocaine 1% (20 ml mdv) 20 ML Vial INFILT (16:51)
--- NOTE | 2022-12-10 17:55 | ED.RN ---
port still will not draw; has been attempted by [address] Darden acknowledges, lab to come to department to draw peripheral sample.
[2022-12-10] MEDS: oxyCODONE 5 MG Tablet 10 MG PO (18:16)
[2022-12-10 18:32] LABS: Absolute Lymphocyte Count 1.88 X10^3/uL (0.83-4.51); Absolute Neutrophil Count 7.8 X10^3/uL (2.0-7.7); Basophil# 0.06 X10^3/uL; Basophil% 0.6 % (0-1); Eosinophil# 0.35 X10^3/uL; Eosinophils% 3.3 % (0-5); Hematocrit 39.8 % (37-47); Hemoglobin 12.9 g/dL (12.0-15.0); Lymphocyte # 1.88 X10^3/ul (0.83-4.51); Lymphocyte % 17.5 % (19-41); Mean Corp Hgb Conc 32.4 g/dL (32-36); Mean Corpuscular Hgb 31.7 pg (27.0-32.0); Mean Corpuscular Volume 97.8 fL (81-99); Monocyte# 0.59 X10^3/uL; Monocyte% 5.5 % (0-10); NRBC Flagged by Analyzer 0 % (0-5); Neutrophil % 72.4 % (47-70); Platelet Count 259 K/mm3 (150-450); RBC Distribution Width CV 13.6 % (11.6-14.6); Red Blood Count 4.07 M/mm3 (4.2-5.4); White Blood Count 10.8 K/mm3 (4.4-11.0)
--- NOTE | 2022-12-10 18:39 | ED.RN ---
WAS GIVEN APPROX 750 ML OF NS TO ASSIST WITH BLOOD DRAW, WAS STILL NOT ABLE TO GET BLOOD OFF PORT. LAB GOT 1 SET OF BLOOD CULTURES AND LABWORK. MD AWARE. PT STATES PORT DOES NOT NEED HEPARIN AT DC.
== END 2022-12-10 18:41 | disposition home or self-care (01) ==
PROVIDERS: Emergency Provider Emergency Medicine; PCP Family Medicine Sports Medicine; Visit Provider Emergency Medicine
DX: L72.3 Sebaceous cyst (principal); M06.9 Rheumatoid arthritis, unspecified; Z79.899 Other long term (current) drug therapy; Z85.3 Personal history of malignant neoplasm of breast
CPT/HCPCS: 10060; 36415; 85025; 87040; 87070; 87205; 99284; J7030; A4216

== ENCOUNTER 2023-06-20 09:00 | Outpatient (RCR) | payer BC, MEDICARE, SELFPAY ==
--- NOTE | 2023-04-09 14:35 | HP.PTEVAL ---
Patient's Visit Information Visit Information Visit Information: NAVIN LEVY is a 42 year old F referred to Physical Therapy by Dr. Kiana Hinton MD with a diagnosis of CERVICAL AND LUMBAR RADICULOPATHY. Date of Evaluation: 04/09/23 Physical Therapist: Cynthia Diggs PT, Cert MDT Visit Plan Frequency: 2x /Week Duration: 4-6 Weeks Plan: *SEE NOTES/HISTORY ABOVE ABOUT SEIZURES* AQUATIC THREAPY FOR ANTERIOR/POSTERIOR THORACIC AND L SHLD PAIN RELIEF. L SHLD ROM, STRETCHING AND STRENGTHEING (SCAP STABILIZATION) TAKING INTO CONSIDERATION HISTORY OF DISLOCATIONS. POSTURE TRAINING. CORE STRENGTH AND STABILITY TRAINING. LE STRETCHING AND STRENGTHENING. HEP. Subjective Subjective: Work/Leisure: UNEMPLOYED Disability: YES - SINCE LAST YEAR Present symptoms: CHEST PAIN (STERNUM AREA). THORACIC AREA PAIN. Present since: COUPLE YEARS Pain Scale: WORSE 7/10, LEAST 3/10 Currently: 5/10 Is it getting better, worse or staying the same: STAYING THE SAME Commenced as a result of: NO APPARENT REASON OTHER THAN MASTECTOMY AND ARTHRITIS Worse: SITTING TOO LONG, SITTING ON BLEACHERS, SITTING STRAIGHT UP, STANING TO LONG, STANDING TO MAKE SUPPER, STAYING IN ANY POSITION TOO LONG. LYING IN BED TOO LONG. Better: FREQUENT CHANGE OF POSITION, RECLINER, HEATING PAD, STRETCHING IN DAD'S POOL IN THE SUMMER Disturbed sleep: YES Treatment: MEDICATIONS. EPISODIC CHIROPRACTIC TREATMENTS NEEDED ENTIRE ADULT LIFE BUT HAS NOT BEEN FOR OVER A YEAR - USUALLY HELPS TO SOME DEGREE. Coughing/sneezing/straining: NEGATIVE FOR INCREASED PAIN. Gait: NOT FALLING. NOT USING AD'S. Bowel or Bladder Dysfunction: NOT INCONTINENT. Accidents: NO Unexplained weight loss: NO Imaging: RECENT IMAGING OF NECK AND BACK. MRI OF LUMBAR BUT NOT OF NECK. SEE [facility] EMR. PMH/Recent major surgery: H/O GAB SHLD'S DISLOCATING. H/O THYROID CA. RA, OA AND FIBROMYALGIA, H/O BREAST CANCER TREATED WITH MASECTOMY, CHEMO AND RADIATION. CURRENTLY CANCER FREE FAR PATIENT IS AWARE. BRAIN DISORDER - PV[facility] - CAUSES EPILEPSY - HAS CAUSED SPINE and OTHER BODY INJURY FROM VIOLENT AND MULTIPLE seizures. LAST SEIZURE NEEDING MEDICAL ATTENTION WAS APPROX 2021 BUT PATIENT HAS FREQUENT ABSENT SEIZURES REQUIRING WHOEVER IS WITH HER TO JUST SIT WITH HER AND WAIT FOR HER TO COME OUT OF IT. PATIENT HAS MEDICINE THAT SHE ADMINISTERS ON HER OWN. Objective Objective: Sitting/Standing Posture: FH. RSH'S. NO TORTICOLIS OR RELEVANT LATERAL SHIFT. Active Correction of posture: ABLE TO PARTIALLY CORRECT BUT DOES NOT MAINTAIN. Other Observations: INDEP GAIT AND TRANSFERS. PLEASANT AND COOPERATIVE TO WORK WITH. FOLLOWS MOST COMMANDS WELL. OCCASSIONALLY LOOKS TO FOR HELP WITH HISTORY QUESTIONS AND TO UNDERSTAND COMMANDS FOR TESTING. Sensory deficit: GAB UE AND LE LIGHT TOUCH SENSATION IS GROSSLY INTACT AND SYMMETRICAL ROM deficit: R UE WFL. PATIENT IS R HAND DOMINANT. L UE: FLEX - FULL, ABD - 25% LIMITED, ER - 50% LIMITED, IR - 25% LIMITED (PATIENT C/O L SHLD, SHLD BLADE AND THORACIC SPINE PAIN WITH L SHLD ROM TESTING). OTHERWISE L UE WFL. GAB LE HIP FLEXOR, HS AND CALF TIGHTNESS. POSTURAL TIGHTNESS. Motor deficit: R UE: SHLD 4/5, ELBOW 5/5, HAND WFL. L UE: SHLD 3-/5, ELBOW 4/5, HAND WFL. LE'S: HIPS 4/5, KNEES 5/5, ANKLES 5/5. Reflexes: UNABLE TO ELICIT GAB UE AND LE DTR'S. Dural Signs: NEGATIVE GAB LE'S. Lumbar mvmt loss: flex - NIL ext - MIN R SG - MIN L SG - MOD L SG PROVOKES R LOWER THORACIC PAIN CERVICAL ROM TESTING: MODERATE GAB SB AND EXTENSION MVMT LOSS. MAJOR RETRACTION MVMT LOSS. THORACIC MVMT LOSS: R ROT - MIN L ROT - MOD TO AVIS. INCREASED C/O THORACIC PAIN WITH GAB THORACIC ROTATION TESTING L >R. Core strength: POOR Palpation: TENDERNESS WITH PALPATION OF UPPER THORACIC SPINE AND LOWE STERNUM. OTHER: PATIENTS TAD IS PRESENT AND HELPFUL THROUGHOUT SESSION. HE HAS RECENTLY HAD AQUATIC THERAPY HIMSELF AND PLANS TO ATTEND AT LEAST THE FIRST SESSION WITH HIS . Balance/Special Test Scores Oswestry Low Back Score: 22 Goals Goal 1:: DECREASE C/O ANTERIOR AND POSTERIOR THORACIC PAIN BY AT LEAST 25% Goal Time Frame: 4-6 Weeks Goal 2:: PATIENT WILL HAVE FULL PAINFREE ROM OF L SHLD TO EASE ADL'S Goal Time Frame: 4-6 Weeks Goal 3:: PATIENT WILL DEMONSTRATE IMPROVED STRENGTH OF ALL INVOLVED MUSCULATURE BY AT LEAST 1/2 M. GRADE. Goal Time Frame: 4-6 Weeks Goal 4:: PATIENT WILL BE INDEP WITH HOME AND/OR WATER EX PROGRAMS FOR CONTINUED IMPROVEMENT ONCE FORMAL PHYSICAL THERAPY CONCLUDES. Goal Time Frame: 4-6 Weeks Rehabilitation Potential Physical Therapy Diagnosis: THIS PATIENT PRESENTS TO PT WITH C/O CHRONIC PAIN ALL OVER BUT CHIEF C/O PAIN IN STERNUM AND THORACIC REGIONS. SHE HAS DECREASED SPINAL MOBILITY, THORACIC AND STERNUM TENDERNESS AND LIMITED FUNCTION OF L SHLD ALONG WITH POSTURAL AND CORE WEAKNESS. Rehabilitation Potential: Good Anticipated Interventions Patient/Client Instruction: Educate patient on: Condition, Plan of Care and Risk Factors For the Purpose of:: To improve self management Therapeutic Exercise to Include: Strength training, Body mechanics, Postural training, Flexibilty training, Neuromotor development, In an aquatic setting, Dynamic Lumbar Stabilization and Scapular Strength/Stabilization For the Purpose of:: To decrease pain, To increase ROM, To improve muscle performance and motor function, To increase tolerance to activity/condition/position, To improve ability of physical actions for home/community/work/leisure, To decrease soft tissue restriction, To increase flexibility/ROM and To improve health and function Text: Thank you for the opportunity to evaluate your patient. For Medicare and Medicare HMO plans, please review the plan of care and approve it. It will need to be FAXED BACK to us at [phone] for Medicare purposes. For Medicare only, by signing this I certify the plan of care. Please let me know if there are questions or concerns regarding this plan of care. Physician Signature: Date:
--- NOTE | 2023-05-20 12:31 | HP.PTREVAL_ITS ---
Re-Evaluation Intro: Dr. Kiana Hinton MD, It has been my pleasure to treat NAVIN LEVY over the last 9 visits for CERVICAL AND LUMBAR RADICULOPATHY. Please see the progress note below for an update on the physical therapy plan of care! Subjective Subjective: PATIENT REPORTS SHE IS GETTING BETTER. SHE LIKES THE AQUATIC THERAPY AND WANTS TO CONTINUE. SHE REPORTS FEELING STRONGER AND GETTING BETTER PAIN RELIEF. SHE REPORTS IMPROVEMENT IN HER PAIN WITH WALKING, SITTING AND STANDING ACTIVITIES. SHE ISN'T USING THE PAIN PATCHES ANYMORE. HER REPORTS SHE SEEMS TO HAVE INCREASED FREEDOM OF MVMT. Objective Objective/Function: PATIENT WAS SEEN TODAY FOR RE-ASSESSMENT OF PROGRESS TOWARD THE SET PT GOALS AND THE NEED FOR FURTHER PHYSICAL THERAPY VS READINESS FOR DISCHARGE. THIS PATIENT IS MAKING GOOD PROGRESS TOWARD ALL PT GOALS AND IS A GOOD CANDIDATE TO CONTINUE PT BASED ON PROGRESS MADE AND ROOM FOR FURHER IMPROVEMENT. PATIENT AND HER ARE AGREEABLE. DISCUSSED DISCHARGE PLANNING. PATIENTS HAS DONE AQUATIC THERAPY AND HAS ACCESS TO A POOL AT [facility] [place] AND CAN EXPLORE USE FOR PATIENT TOO. PATIENT IS ALSO INTERESTED IN MEMBERSHIP HERE AT [employer] AND WILL HAVE ACCESS TO SOME PASSESS THROUGH THE CANCER SOCIETY. UPON EXAM TODAY PATIENT IS NOW ABLE TO ELEVATE LEFT UE THROUGH FULL ROM WITH STRENGTH GROSSLY GRADED 4-/5 AND C/O MILD PAIN. CORE STRENGTH - FAIR. PATIENT IS TOLERATING PRE WELL IN THE POOL AND IS A GOOD CANDIDATE TO CONTINUE. Plan Plan Plan: CONTINUE AQUATIC THERAPY 2 TIMES A WK X 10 VISITS. *SEE NOTES/HISTORY ABOUT SEIZURES* AQUATIC THREAPY FOR ANTERIOR/POSTERIOR THORACIC AND L SHLD PAIN RELIEF. L SHLD ROM, STRETCHING AND STRENGTHEING (SCAP STABILIZATION) TAKING INTO CONSIDERATION HISTORY OF DISLOCATIONS. POSTURE TRAINING. CORE STRENGTH AND STABILITY TRAINING. LE STRETCHING AND STRENGTHENING. HEP. Balance/Gait/Functional tests Balance/Special Test Scores Oswestry Low Back Score: 16 Goals Goals Goal 1:: DECREASE C/O ANTERIOR AND POSTERIOR THORACIC PAIN BY AT LEAST 25% Goal Time Frame: 4-6 Weeks Goal Progress: Progressing Goal 2:: PATIENT WILL HAVE FULL PAINFREE ROM OF L SHLD TO EASE ADL'S Goal Time Frame: 4-6 Weeks Goal Progress: Progressing Goal 3:: PATIENT WILL DEMONSTRATE IMPROVED STRENGTH OF ALL INVOLVED MUSCULATURE BY AT LEAST 1/2 M. GRADE. Goal Time Frame: 4-6 Weeks Goal Progress: Progressing Goal 4:: PATIENT WILL BE INDEP WITH HOME AND/OR WATER EX PROGRAMS FOR CONTINUED IMPROVEMENT ONCE FORMAL PHYSICAL THERAPY CONCLUDES. Goal Time Frame: 4-6 Weeks Goal Progress: Progressing Anticipated Interventions Anticipated Interventions Patient/Client Instruction: Educate patient on: Condition, Plan of Care and Risk Factors For the Purpose of:: To improve self management Therapeutic Exercise to Include: Strength training, Body mechanics, Postural training, Flexibilty training, Neuromotor development, In an aquatic setting, Dynamic Lumbar Stabilization and Scapular Strength/Stabilization For the Purpose of:: To decrease pain, To increase ROM, To improve muscle performance and motor function, To increase tolerance to activity/condition/position, To improve ability of physical actions for home/community/work/leisure, To decrease soft tissue restriction, To increase flexibility/ROM and To improve health and function Re-Evaluation Ending Re-evaluation ending: Please do not hesitate to contact me at [phone] by phone or if you have questions or concerns regarding this new plan of care! Sincerely, Cynthia Diggs, PT, Cert MDT
--- NOTE | 2023-06-20 17:06 | HP.PTDCSUM_ITS ---
Discharge Summary D/C summary: It has been my pleasure to treat NAVIN LEVY referred by Dr. Kiana Hinton MD, with the diagnosis of CERVICAL AND LUMBAR RADICULOPATHY for a total of 19 visit(s). Discharge Date: 06/20/23 Please see the following information for a summary of their discharge status. Subjective Subjective: PATIENT REPORTS THE WATER THERAPY HELPS A LOT. SHE REPORTS SHE FEELS ABOUT 75% BETTER BY THE END OF HER SESSIONS AND STILL ABOUT 25% BETTER BY THE TIME THE NEXT SESSION ROLLS AROUND. I AM FEELING STRONGER OVER ALL AND ABLE TO USE BETTER BODY MECHANICS. PATIENT REPORTS SHE CAN GET ACCESS TO [employer] [facility]OUGH [facility] TO CONTINUE USING THE POOL ON HER OWN accompanied by her or son. PATIENT REPORTS SHE FELT GOOD RUNNING THROUGH THE EX'S WITH THE EX SHEET LAST VISIT. SHE STATES IT IS EASIER WHEN SOMEONE HELPS HER AND HER REPORTS HE CAN HELP HER. Pain Left shoulder: Pain Intensity (Out of 10): 0 GUILLEN: Pain Intensity (Out of 10): 2 thoracic spine: Pain Intensity (Out of 10): 4 bilat hips: Pain Intensity (Out of 10): 6 Sternum: Pain Intensity (Out of 10): 2 Overall Improvement % Improvement: 25 Objective Objective/Function: PATIENT WAS SEEN TODAY FOR RE-ASSESSMENT OF PROGRESS TOWARD THE SET PT GOALS AND THE NEED FOR FURTHER PHYSICAL THERAPY VS READINESS FOR DISCHARGE. PATIENT IS INDEP WITH A WATER EX PROGRAM AND APPROPRIATE FOR DISCHARGE. UPON EXAM TODAY: THIS PATIENT AMBULATES INDEP'LY INTO PT WITH HER . INDEP TRANSFERS SIT TO STAND AND REVERSE WITHOUT UE ASSIST. ROM deficit: GAB UE'S WFL. INTERMITTENT L UE PAIN. GAB LE HIP FLEXOR, HS AND CALF TIGHTNESS. POSTURAL TIGHTNESS. Motor deficit: R UE: SHLD 5/5, ELBOW 5/5, HAND WFL. L UE: SHLD 4/5, ELBOW 5/5, HAND WFL. LE'S: HIPS 5/5, KNEES 5/5, ANKLES 5/5. Lumbar mvmt loss: flex - NIL ext - MIN R SG - MIN L SG - MOD L SG PROVOKES R LOWER THORACIC PAIN CERVICAL ROM TESTING: MIN GAB SB AND MOD EXTENSION MVMT LOSS. MAJOR RETRACTION MVMT LOSS. THORACIC MVMT LOSS: R ROT - MIN L ROT - MOD INCREASED C/O THORACIC PAIN WITH LEFT THORACIC ROTATION TESTING Core strength: FAIR. Goals Goal 1:: DECREASE C/O ANTERIOR AND POSTERIOR THORACIC PAIN BY AT LEAST 25% Goal Progress: Goal Met Goal 2:: PATIENT WILL HAVE FULL PAINFREE ROM OF L SHLD TO EASE ADL'S Goal Progress: Progressing Goal 3:: PATIENT WILL DEMONSTRATE IMPROVED STRENGTH OF ALL INVOLVED MUSCULATURE BY AT LEAST 1/2 M. GRADE. Goal Progress: Goal Met Goal 4:: PATIENT WILL BE INDEP WITH HOME AND/OR WATER EX PROGRAMS FOR CONTINUED IMPROVEMENT ONCE FORMAL PHYSICAL THERAPY CONCLUDES. Goal Progress: Goal Met Plan Plan: D/C TO INDEP WATER EX PROGRAM. PATIENT AND AGREEABLE. D/C Information d/c sentence: If there are questions or concerns regarding this patient's physical therapy, please feel free to call me at [phone]. Thank you for the referral of this patient. Sincerely, Cynthia Diggs, PT, Cert MDT Balance/Gait/Functional tests Balance/Special Test Scores Oswestry Low Back Score: 16 Improvement % Improvement: 25
== END 2023-06-20 19:00 | disposition home or self-care (01) ==
LOC: PT 09:00
PROVIDERS: PCP Family Medicine Sports Medicine; Referring Provider Anesthesiology Pain Medicine; Visit Provider Anesthesiology Pain Medicine
DX: M54.12 Radiculopathy, cervical region (principal); M54.16 Radiculopathy, lumbar region
CPT/HCPCS: 97113; 97162

== ENCOUNTER 2024-10-27 09:25 | Emergency (ER) | payer BC, MEDICARE, SELFPAY ==
[2024-10-27 09:27] VITALS: BP 113/80; PULSE 82; RESP 18; TEMP 36.1; O2SAT 99; BMI 34.3
--- NOTE | 2024-10-27 09:43 | EX.ED.UPPERE ---
HPI History of Present Illness HPI Narrative: Patient presents with left shoulder pain that began last night. Patient states she has a history of tonic-clonic seizures. Patient states she had a seizure last night and after the seizure she developed pain in her left shoulder. Patient is concerned there could be a dislocation. Patient states she has dislocated her shoulder posteriorly after seizures in the past. Patient states she also has some pain radiating down into her chest. Patient states this feels more like musculoskeletal pain. Patient denies any shortness of breath or cough. Patient states her shoulder pain is worse with any movement. Patient states it is better with ice and heat. states that the patient's seizure last night was a typical tonic-clonic seizure but seems to be worse than her typical seizures. states the patient did have a longer postictal state last evening. Patient states she still feels somewhat out of it. Chief Complaint: Upper Extremity Injury Occured/Mechanism Comment: Seizure Onset/Context/Timing Onset: Yesterday Context: Sudden Onset Timing: Continuous Quality of Pain: Burning Location: Left shoulder Worsened by: Movement Relieved by: Ice, heat Associated Symptoms Associated Symptoms: Negative for Parasthesia, Weakness or Loss of Funtion [facility] Medical History Cancer Depression Anxiety History of steroid therapy Thyroid disease Rheumatoid arthritis Anemia Fatty liver Restless legs Migraine headache Seizures Seizures Non-smoker Asthma Shortness of breath on exertion Hx of transesophageal echocardiography (GREGORY) for monitoring History of stress test Port-A-Cath in place stereoelectroencephalography steroelectroencephalogy Back pain Neck pain Shoulder pain History of hemorrhoids Loss of consciousness History of thyroid cancer Home Medications ?Medication ?Instructions ?Recorded ?Last Taken ?Type lamotrigine 200 mg tablet 200 mg PO BID 05/01/18 07/25/22 History zonisamide 100 mg capsule 300 mg PO BID 06/09/18 07/25/22 History diazepam 10 mg tablet 10 mg PO DAILY PRN Anxiety 01/15/20 Unknown History levothyroxine 200 mcg tablet 200 mcg PO QHS 01/15/20 Unknown History anastrozole 1 mg tablet 1 mg PO DAILY 07/18/22 Unknown History clobazam 10 mg tablet (Onfi) 20 mg PO QHS 07/18/22 Unknown History clonazepam 0.5 mg disintegrating 0.5 mg PO PRN SEIZURE 07/18/22 Unknown History tablet ergocalciferol (vitamin D2) 1,250 1,250 mcg PO MO 07/18/22 Unknown History mcg (50,000 unit) capsule (Vitamin D2) leucovorin calcium 5 mg tablet 5 mg PO FR 07/18/22 Unknown History leuprolide 3.75 mg intramuscular 3.75 mg IM QMONTH 07/18/22 06/05/22 History meloxicam 15 mg tablet 15 mg PO QHS 07/18/22 Unknown History methotrexate (PF) 25 mg/mL 6.6 mg subcut TH 07/18/22 Unknown History subcutaneous syringe oxycodone-acetaminophen 5 mg-325 1 tab PO Q6H PRN Pain 07/18/22 Unknown History mg tablet (Percocet) promethazine 25 mg tablet 25 mg PO Q6H PRN Nausea 07/18/22 Unknown History propranolol 20 mg tablet 20 mg PO BID 07/18/22 07/25/22 History tizanidine 4 mg capsule 4 mg PO QHS 07/18/22 Unknown History zoledronic acid 4 mg/100 mL in 4 mg IV .Q3MO 07/18/22 Unknown History mannitol 5 %-water intravenous piggybck sulfamethoxazole 800 1 tab PO BID #14 TABLETS 12/10/22 Unknown Rx mg-trimethoprim 160 mg tablet hydrocodone-acetaminophen 5-325mg 1 tab PO Q6H PRN PRN Pain 3 days 10/27/24 Unknown Rx 5mg-325mg #10 TABLETS Allergy/AdvReac Type Severity Reaction Status Date / Time adhesive tape Allergy Rash Verified 10/27/24 09:27 cephalexin monohydrate (From Allergy Hives Verified 10/27/24 09:27 Keflex) levofloxacin (From Levaquin) Allergy Hives Verified 10/27/24 09:27 Penicillins (PCN) Allergy Anaphylaxis Verified 10/27/24 09:27 vancomycin Allergy Unknown Verified 10/27/24 09:27 Surgical History Hx of breast surgery Hx of left mastectomy History of esophagogastroduodenoscopy (EGD) Hx of brain surgery Hx of laparoscopy History of hysteroscopy H/O thyroidectomy History of cholecystectomy History of delivery Social History household members: none Smoking Status: Never smoker alcohol intake: current alcohol intake frequency: a few times a month substance use type: does not use ROS ROS ED Constitutional Constitutional ED: Denies chills or fever(s) Eyes Eyes: Denies blurry vision or change in vision ENT ENT ED: Denies rhinorrhea or sore throat Cardiovascular Cardiovascular: Reports chest pain; Denies palpitations Respiratory/Chest Respiratory/Chest: Denies cough or dyspnea Gastrointestinal Gastrointestinal: Denies nausea or vomiting Genitourinary Genitourinary ED: Denies dysuria or hematuria Musculoskeletal Musculoskeletal: Reports back pain and neck pain Integumentary Denies abscess or rash Neurologic Neurologic: Reports headache(s); Denies weakness Allergic/Immunologic Allergic/Immunologic ED: Denies mouth swelling or urticaria EXAM Physical Exam Const Vital Signs: 10/27/24 09:27 Temperature 97 F L Temperature Source Temporal Pulse Rate 82 Respiratory Rate 18 Blood Pressure 113/80 Blood Pressure Mean 91 Pulse Ox 99 Positive well nourished and well developed Constitutional Narrative: BMI is 34.3. General Appearance ED: well developed and NAD HEENT Reports moist mucous membranes Neck full ROM and supple Chest Wall Chest Narrative: There is mild tenderness over the left upper chest. Extremity Extremity Narrative: There is tenderness over the left shoulder. Range of motion was limited in all motions of the left shoulder secondary to pain. There is no obvious deformity noted. There is no sulcus sign noted. Radial pulses are equal bilaterally. Strength is 5/5 in the radial, median, and ulnar areas. Sensation was intact to light touch in the radial, median, ulnar, and axillary areas. Neuro oriented x3, CN's II-XII intact bilaterally, moves all extremities, no focal motor deficits and no sensory deficits noted Sensorium / Orientation: alert Motor Exam: strength 5/5 throughout Psych mental status grossly normal MDM MDM MDM Narrative Medical decision making narrative: Differential diagnosis includes dislocation, fracture, and contusion. X-rays of the left shoulder will be obtained to assess for fracture or dislocation. Radiography Diagnostic Testing: X-rays of the left shoulder were obtained. There are 4 views. On my independent interpretation, there is no acute fracture or dislocation noted. There are some degenerative changes noted. Radiologist also interpreted the x-rays and agrees. Treatment and Re-Evaluation Narrative: Patient was advised of her findings. Patient was given a dose of [place] here. Patient was instructed to use ice to the area. Patient was instructed to do range of motion exercises after ice treatments. Patient was instructed to follow-up with her primary care physician in 5 to 7 days. Patient was given a prescription for a short course of [place]. Patient understood and was agreeable with the plan. All questions were answered. Discharge Plan Triage Chief Complaint: Upper Extremity Injury ED Provider: Napoleon Doss Dx/Rx/DC Orders Clinical Impression: Left shoulder strain, Seizure disorder Instructions: ED Shoulder Sprain Prescriptions: New hydrocodone-acetaminophen 5-325 mg tablet 1 tab PO Q6H PRN PRN (Reason: Pain) 3 Days Qty: 10 0RF No Action lamotrigine 200 MG tablet 200 mg PO BID zonisamide 100 MG capsule 300 mg PO BID levothyroxine 200 MCG tablet 200 mcg PO QHS diazepam 10 MG tablet 10 mg PO DAILY PRN (Reason: Anxiety) anastrozole 1 mg Tablet 1 mg PO DAILY Lupron Depot 3.75 mg Injectable 3.75 mg IM QMONTH meloxicam [Mobic] 15 mg Tablet 15 mg PO QHS oxycodone-acetaminophen [Percocet] 5-325 mg Tablet 1 tab PO Q6H PRN (Reason: Pain) promethazine [Phenergan] 25 mg Tablet 25 mg PO Q6H PRN (Reason: Nausea) leucovorin calcium 5 mg Tablet 5 mg PO FR ergocalciferol (vitamin D2) [Vitamin D2] 1,250 mcg (50,000 unit) Capsule 1,250 mcg PO MO propranolol 20 mg Tablet 20 mg PO BID clonazepam 0.5 mg Tablet,Disintegrating 0.5 mg PO PRN tizanidine 4 mg Capsule 4 mg PO QHS zoledronic [id number] [Zometa] 4 mg/100 mL Piggyback 4 mg IV .Q3MO clobazam [Onfi] 10 mg Tablet 20 mg PO QHS methotrexate (PF) 25 mg/mL Syringe 6.6 mg SUBCUT TH sulfamethoxazole-trimethoprim [sulfamethoxazole-trimethoprim] 800-160 mg tablet 1 tab PO BID Qty: 14 0RF Primary Care Provider: Vandana Child Referrals: Vandana Child MD [Primary Care Provider] - 5-7 Days Print Language: Bengali Disposition Disposition: Home, Self Care
--- NOTE | 2024-10-27 10:03 | RAD_ITS ---
PROCEDURE: SHOULDER MIN 2 VIEWS 10/27/2024 REASON FOR EXAM: INJURY/PAIN TECHNIQUE: SHOULDER MIN 2 VIEWS Laterality: Left shoulder COMPARISON: None FINDINGS: Bones: No fracture is seen. Joints: Mild degree of osteoarthritis of the left shoulder. Soft tissues: Findings suggestive of calcific tendinitis. Other: Surgical clips are seen in the left axilla. RAD/Shoulder min 2 Views IMPRESSION: Degenerative changes. No fracture is seen. Calcific tendinitis. Reading Location: [id number]
[2024-10-27] MEDS: HYDROcodone Bitartrate/Apap 5/325 Tablet PO (10:35)
== END 2024-10-27 11:56 | disposition home or self-care (01) ==
PROVIDERS: Emergency Provider Emergency Medicine; PCP Family Medicine Sports Medicine; Visit Provider Emergency Medicine
DX: G40.909 Epilepsy, unspecified, not intractable, without status epilepticus (principal); S46.912A Strain of unspecified muscle, fascia and tendon at shoulder and upper arm level, left arm, initial encounter; Z85.850 Personal history of malignant neoplasm of thyroid; Z79.899 Other long term (current) drug therapy; F41.9 Anxiety disorder, unspecified; Z90.12 Acquired absence of left breast and nipple; Z90.49 Acquired absence of other specified parts of digestive tract
CPT/HCPCS: 73030; 99282